=== PATIENT | male | born 1950 | race Caucasian/White ===

== ENCOUNTER 2021-07-02 10:24 | Emergency (ER) | payer OTHER, SELFPAY ==
[2021-07-02] VITALS (16 sets, daily range): BP systolic 139–180; BP diastolic 70–90; PULSE 81–101; RESP 3–25; TEMP 36.6; O2SAT 93–99; BMI 30.8
[2021-07-02 12:08] LABS: Add Manual Diff / Slide Review NO; Basophils Absolute Auto 0 /uL (0-100); Basophils Percent Auto 0.4 % (0-2); Eosinophils Absolute Auto 0 /uL (0-450); Eosinophils Percent Auto 0.1 % (2-4); Hematocrit 43.1 % (41-53); Hemoglobin 14.7 g/dL (13.5-17.5); Lymphocytes Absolute Auto 900 /uL (1100-4500); Lymphocytes Percent Auto 11.9 % (25-40); Mean Corpuscular HGB Conc 34.1 % (30-36); Mean Corpuscular Hemoglobin 29.9 PG (26-34); Mean Corpuscular Volume 87.7 fL (80-100); Monocytes Absolute Auto 700 /uL (0-900); Neutrophils Absolute Auto 5800 /uL (1500-7000); Neutrophils Percent Auto 77.6 % (50-75); Platelet Count 253 X10^3/uL (150-400); Red Blood Cell Count 4.91 X10^6/uL (4.5-5.9); Red Cell Distribution Width 13.5 % (11.6-14.8); White Blood Cell Count 7.4 X10^3/uL (4.5-11.0)
[2021-07-02 12:13] LABS: Alanine Aminotransferase 17 IU/L (<50); Albumin 4.5 g/dL (3.5-5.0); Albumin Globulin Ratio 1.4 (1.0-2.8); Alkaline Phosphatase 59 U/L (38-126); Aspartate Aminotransferase 40 IU/L (17-59); Blood Urea Nitrogen 8 mg/dL (9-20); Calcium 9.2 mg/dL (8.4-10.2); Carbon Dioxide 25 mmol/L (22-32); Chloride 99 mmol/L (98-107); Estimated Glomerular Filt Rate > 60.0 mL/min (>60); Globulin 3.3 g/dL (1.7-4.1); Glucose 121 mg/dL (80-110); Sodium 130 mmol/L (137-145); Total Protein 7.8 g/dL (6.3-8.2)
--- NOTE | 2021-07-02 12:13 | ED.DIZZY ---
HPI - Dizziness <Vladimir Reddy PA-C - Last Filed: 07/02/21 19:43> General Chief Complaint: Dizziness Stated Complaint: dizzy Time Seen by Provider: 07/02/21 12:09 Source: patient and family Mode of arrival: Ambulatory Limitations: no limitations History of Present Illness HPI Narrative: Arnulfo presents today with chief complaint of lightheadedness that started yesterday at 1600 while he was sitting at his desk at home. He reports that this has been constant since this occurred. Nothing seems to make his symptoms significantly worse. This includes rapid changes head direction, position changes. He also reports that he has had slight shortness of breath. He reports that ?I just do not feel right?. He has never felt this way before. He takes amlodipine 5 mg daily for his blood pressure but states that it has been elevated today and yesterday with values in to the 150s and 160s systolic. He took amlodipine 5 mg twice today for a total 10 mg to help with his blood pressure. He denies any significant chest pain, cough, sore throat, runny nose, headache, vision changes, exertional symptoms or any other acute concerns or complaints at this time. Related Data Allergies Allergy/AdvReac Type Severity Reaction Status Date / Time warfarin Allergy Intermediate Rash Verified 07/02/21 10:42 Review of Systems <Vladimir Reddy PA-C - Last Filed: 07/02/21 19:43> Review of Systems Narrative: As per HPI Patient History <Vladimir Reddy PA-C - Last Filed: 07/02/21 19:43> Social History Smoking Status: Never smoker Smoking Status: Never smoker alcohol intake frequency: a few times a month Substance Use Type: marijuana Exam <VINICIO Addison Last Filed: 07/02/21 19:43> Narrative Exam Narrative: Const General: cooperative, healthy appearing, comfortable and no acute distress Nutritional Appearance: average body habitus and well nourished Orientation: alert and oriented x3 HENMT Head: normal to inspection and normocephalic Ears: hearing grossly normal bilaterally, external ears normal, TM's normal bilaterally, EAC's normal, mastoids normal and no periauricular adenopathy Nose: external nose normal, nares normal and no nasal discharge Face and sinus: normal facial exam, sinuses nontender and face symmetric Mouth: oral mucosae normal, lip normal, tongue normal and moist mucous membranes Teeth and gingiva: dentition normal and gingiva normal Throat: posterior oropharynx normal, uvula midline, no postnasal drainage and no uvular edema Eyes periorbital findings normal, eyelids normal, conjunctivae normal Neck: normal visual inspection, full ROM, no lymphadenopathy, no meningeal signs and supple Resp: normal respiratory effort, able to speak in complete sentences, not labored and no respiratory distress, clear to auscultation bilaterally, no crackles, no rales and no wheezes Cardio regular rate regular rhythm Heart Sounds: no gallops, no murmurs and no rubs Extrem normal to inspection, no pedal edema and no calf tenderness Neuro Alert and Oriented x3, normal gait, moves all extremities. Normal [id number], normal rapid alternating movements of upper extremities, negative Romberg. Cranial nerves 2 through drove grossly intact. Initial Vital Signs Initial Vital Signs: Vital Signs Temperature 97.9 F 07/02/21 10:30 Pulse Rate 101 H 07/02/21 10:30 Respiratory Rate 18 07/02/21 10:30 Blood Pressure 180/85 H 07/02/21 10:30 Pulse Oximetry 95 07/02/21 10:30 <Tamiko Schwab DO - Last Filed: 07/06/21 08:51> Initial Vital Signs Initial Vital Signs: Vital Signs Temperature 97.9 F 07/02/21 10:30 Pulse Rate 101 H 07/02/21 10:30 Respiratory Rate 18 07/02/21 10:30 Blood Pressure 180/85 H 07/02/21 10:30 Pulse Oximetry 95 07/02/21 10:30 Course <Vladimir Reddy PA-C - Last Filed: 07/02/21 19:43> Orders Ordered: Discontinued Medications Sodium Chloride (Normal Saline 0.9%) 1,000 mls @ 150 mls/hr IV CONT MAG Last Infusion: 07/02/21 14:10 Dose: 0 mls/hr Documented by: Admin: 07/02/21 12:41 Dose: 150 mls/hr Documented by: ROSI Sodium Chloride (Normal Saline 0.9%) 500 mls @ 1,000 mls/hr IV BOLUS ONE Stop: 07/02/21 14:31 Last Infusion: 07/02/21 14:42 Dose: 0 mls/hr Documented by: Admin: 07/02/21 14:10 Dose: 1,000 mls/hr Documented by: ROSI Meclizine HCl (Meclizine Hcl 12.5 Mg Tablet) 25 mg PO NOW ONE Stop: 07/02/21 12:32 Last Admin: 07/02/21 12:41 Dose: 25 mg Documented by: ROSI Vital Signs Vital signs: Vital Signs - 8 hr 07/02/21 12:00 07/02/21 12:36 07/02/21 12:38 Pulse Rate 88 99 H 95 H Respiratory Rate 15 3 L Blood Pressure 144/73 H 175/80 H Pulse Oximetry 97 97 98 07/02/21 13:00 07/02/21 13:30 07/02/21 14:00 Pulse Rate 91 H 87 81 Respiratory Rate 15 14 16 Blood Pressure Pulse Oximetry 99 96 96 07/02/21 14:03 07/02/21 14:30 07/02/21 14:31 Pulse Rate 90 84 84 Respiratory Rate 18 12 19 Blood Pressure 163/90 H 152/72 H Pulse Oximetry 98 98 97 07/02/21 15:00 07/02/21 15:30 07/02/21 16:00 Pulse Rate 82 82 90 Respiratory Rate 14 17 Blood Pressure 152/72 H 180/77 H Pulse Oximetry 98 97 98 <Tamiko Schwab, DO - Last Filed: 07/06/21 08:51> Orders Ordered: Discontinued Medications Sodium Chloride (Normal Saline 0.9%) 1,000 mls @ 150 mls/hr IV CONT MAG Last Infusion: 07/02/21 14:10 Dose: 0 mls/hr Documented by: Admin: 07/02/21 12:41 Dose: 150 mls/hr Documented by: ROSI Sodium Chloride (Normal Saline 0.9%) 500 mls @ 1,000 mls/hr IV BOLUS ONE Stop: 07/02/21 14:31 Last Infusion: 07/02/21 14:42 Dose: 0 mls/hr Documented by: Admin: 07/02/21 14:10 Dose: 1,000 mls/hr Documented by: ROSI Meclizine HCl (Meclizine Hcl 12.5 Mg Tablet) 25 mg PO NOW ONE Stop: 07/02/21 12:32 Last Admin: 07/02/21 12:41 Dose: 25 mg Documented by: ROSI Vital Signs Vital signs: Vital Signs - 8 hr 07/02/21 12:00 07/02/21 12:36 07/02/21 12:38 Pulse Rate 88 99 H 95 H Respiratory Rate 15 3 L Blood Pressure 144/73 H 175/80 H Pulse Oximetry 97 97 98 07/02/21 13:00 07/02/21 13:30 07/02/21 14:00 Pulse Rate 91 H 87 81 Respiratory Rate 15 14 16 Blood Pressure Pulse Oximetry 99 96 96 07/02/21 14:03 07/02/21 14:30 07/02/21 14:31 Pulse Rate 90 84 84 Respiratory Rate 18 12 19 Blood Pressure 163/90 H 152/72 H Pulse Oximetry 98 98 97 07/02/21 15:00 07/02/21 15:30 07/02/21 16:00 Pulse Rate 82 82 90 Respiratory Rate 14 17 Blood Pressure 152/72 H 180/77 H Pulse Oximetry 98 97 98 MDM - Dizziness <Vladimir Reddy PA-C - Last Filed: 07/02/21 19:43> Lab Data Result diagrams: 07/02/21 11:24 07/02/21 11:24 Labs: Lab Results 07/02/21 07/02/21 07/02/21 Range/Units 11:24 11:24 11:24 WBC 7.4 (4.5-11.0) X10^3/uL RBC 4.91 (4.5-5.9) X10^6/uL Hgb 14.7 (13.5-17.5) g/dL Hct 43.1 (41-53) % MCV 87.7 (80-100) fL MCH 29.9 (26-34) PG MCHC 34.1 (30-36) % RDW 13.5 (11.6-14.8) % Plt Count 253 (150-400) X10^3/uL Neut % (Auto) 77.6 H (50-75) % Lymph % (Auto) 11.9 L (25-40) % Emmet % (Auto) 10.0 (3-14) % Eos % (Auto) 0.1 L (2-4) % Baso % (Auto) 0.4 (0-2) % Neut # (Auto) 5800 (1970-6921) /uL Lymph # (Auto) 900 L (9431-8087) /uL Emmet # (Auto) 700 (0-900) /uL Eos # (Auto) 0 (0-450) /uL Baso # (Auto) 0 (0-100) /uL Sodium 130 L (137-145) mmol/L Potassium 4.8 (3.4-5.1) mmol/L Chloride 99 (98-107) mmol/L Carbon Dioxide 25 (22-32) mmol/L BUN 8 L (9-20) mg/dL Creatinine 0.57 L (0.66-1.25) mg/dL Estimated GFR > 60.0 (>60) mL/min BUN/Creatinine Ratio 14.0 (6-22) Glucose 121 H (80-110) mg/dL Calcium 9.2 (8.4-10.2) mg/dL Total Bilirubin 1.0 (0.2-1.3) mg/dL AST 40 (17-59) IU/L ALT 17 (<50) IU/L Alkaline Phosphatase 59 (38-126) U/L Total Creatine Kinase 111 (55-170) U/L CK-MB (CK-2) 2.86 H (<2.37) ng/mL CK-MB (CK-2) Rel Index 2.6 (1.5-5.0) % Troponin I < 0.012 (0.01-0.034) ng/mL Total Protein 7.8 (6.3-8.2) g/dL Albumin 4.5 (3.5-5.0) g/dL Globulin 3.3 (1.7-4.1) g/dL Albumin/Globulin Ratio 1.4 (1.0-2.8) 07/02/ Range/Units 15:35 WBC (4.5-11.0) X10^3/uL RBC (4.5-5.9) X10^6/uL Hgb (13.5-17.5) g/dL Hct (41-53) % MCV (80-100) fL MCH (26-34) PG MCHC (30-36) % RDW (11.6-14.8) % Plt Count (150-400) X10^3/uL Neut % (Auto) (50-75) % Lymph % (Auto) (25-40) % Emmet % (Auto) (3-14) % Eos % (Auto) (2-4) % Baso % (Auto) (0-2) % Neut # (Auto) (3466-1479) /uL Lymph # (Auto) (4812-4723) /uL Emmet # (Auto) (0-900) /uL Eos # (Auto) (0-450) /uL Baso # (Auto) (0-100) /uL Sodium (137-145) mmol/L Potassium (3.4-5.1) mmol/L Chloride (98-107) mmol/L Carbon Dioxide (22-32) mmol/L BUN (9-20) mg/dL Creatinine (0.66-1.25) mg/dL Estimated GFR (>60) mL/min BUN/Creatinine Ratio (6-22) Glucose (80-110) mg/dL Calcium (8.4-10.2) mg/dL Total Bilirubin (0.2-1.3) mg/dL AST (17-59) IU/L ALT (<50) IU/L Alkaline Phosphatase (38-126) U/L Total Creatine Kinase 96 (55-170) U/L CK-MB (CK-2) TNP (<2.37) ng/mL CK-MB (CK-2) Rel Index TNP (1.5-5.0) % Troponin I < 0.012 (0.01-0.034) ng/mL Total Protein (6.3-8.2) g/dL Albumin (3.5-5.0) g/dL Globulin (1.7-4.1) g/dL Albumin/Globulin Ratio (1.0-2.8) Urine Dip Bedside Urine Glucose Negative Bedside Urine Bilirubin - Negative Bedside Urine Ketone - Negative Urine Specific [place] 1.015 Bedside Urine Occult Blood - Negative Bedside Urine pH 6 Bedside Urine Protein - Negative Bedside Urine Urobilinogen - Negative Bedside Urine Nitrite - Negative Bedside Urine Leukocytes - Negative Esterase MDM Narrative Medical decision making narrative: Differential diagnosis includes electrolyte abnormality, SARS-CoV-2 infection, acute coronary syndrome, pneumonia, stroke. Patient has been neurologically intact and has had improvement in symptoms with a single L of normal saline. CT scan, and other laboratory evaluation has been reassuring. COVID swab came back negative. He did not any other significant abnormal electrolytes. EKG was reassuring. He had slight bump in his CK-MB initially but troponins x2 are within normal limits. Strict ER return precautions were discussed with the patient. <Tamiko Schwab, DO - Last Filed: 07/06/21 08:51> Lab Data Labs: Lab Results 07/02/21 07/02/21 07/02/21 Range/Units 11:24 11:24 11:24 WBC 7.4 (4.5-11.0) X10^3/uL RBC 4.91 (4.5-5.9) X10^6/uL Hgb 14.7 (13.5-17.5) g/dL Hct 43.1 (41-53) % MCV 87.7 (80-100) fL MCH 29.9 (26-34) PG MCHC 34.1 (30-36) % RDW 13.5 (11.6-14.8) % Plt Count 253 (150-400) X10^3/uL Neut % (Auto) 77.6 H (50-75) % Lymph % (Auto) 11.9 L (25-40) % Emmet % (Auto) 10.0 (3-14) % Eos % (Auto) 0.1 L (2-4) % Baso % (Auto) 0.4 (0-2) % Neut # (Auto) 5800 (8518-4524) /uL Lymph # (Auto) 900 L (2520-3551) /uL Emmet # (Auto) 700 (0-900) /uL Eos # (Auto) 0 (0-450) /uL Baso # (Auto) 0 (0-100) /uL Sodium 130 L (137-145) mmol/L Potassium 4.8 (3.4-5.1) mmol/L Chloride 99 (98-107) mmol/L Carbon Dioxide 25 (22-32) mmol/L BUN 8 L (9-20) mg/dL Creatinine 0.57 L (0.66-1.25) mg/dL Estimated GFR > 60.0 (>60) mL/min BUN/Creatinine Ratio 14.0 (6-22) Glucose 121 H (80-110) mg/dL Calcium 9.2 (8.4-10.2) mg/dL Total Bilirubin 1.0 (0.2-1.3) mg/dL AST 40 (17-59) IU/L ALT 17 (<50) IU/L Alkaline Phosphatase 59 (38-126) U/L Total Creatine Kinase 111 (55-170) U/L CK-MB (CK-2) 2.86 H (<2.37) ng/mL CK-MB (CK-2) Rel Index 2.6 (1.5-5.0) % Troponin I < 0.012 (0.01-0.034) ng/mL Total Protein 7.8 (6.3-8.2) g/dL Albumin 4.5 (3.5-5.0) g/dL Globulin 3.3 (1.7-4.1) g/dL Albumin/Globulin Ratio 1.4 (1.0-2.8) 07/02/21 Range/Units 15:35 WBC (4.5-11.0) X10^3/uL RBC (4.5-5.9) X10^6/uL Hgb (13.5-17.5) g/dL Hct (41-53) % MCV (80-100) fL MCH (26-34) PG MCHC (30-36) % RDW (11.6-14.8) % Plt Count (150-400) X10^3/uL Neut % (Auto) (50-75) % Lymph % (Auto) (25-40) % Emmet % (Auto) (3-14) % Eos % (Auto) (2-4) % Baso % (Auto) (0-2) % Neut # (Auto) (6491-0607) /uL Lymph # (Auto) (8612-0618) /uL Emmet # (Auto) (0-900) /uL Eos # (Auto) (0-450) /uL Baso # (Auto) (0-100) /uL Sodium (137-145) mmol/L Potassium (3.4-5.1) mmol/L Chloride (98-107) mmol/L Carbon Dioxide (22-32) mmol/L BUN (9-20) mg/dL Creatinine (0.66-1.25) mg/dL Estimated GFR (>60) mL/min BUN/Creatinine Ratio (6-22) Glucose (80-110) mg/dL Calcium (8.4-10.2) mg/dL Total Bilirubin (0.2-1.3) mg/dL AST (17-59) IU/L ALT (<50) IU/L Alkaline Phosphatase (38-126) U/L Total Creatine Kinase 96 (55-170) U/L CK-MB (CK-2) TNP (<2.37) ng/mL CK-MB (CK-2) Rel Index TNP (1.5-5.0) % Troponin I < 0.012 (0.01-0.034) ng/mL Total Protein (6.3-8.2) g/dL Albumin (3.5-5.0) g/dL Globulin (1.7-4.1) g/dL Albumin/Globulin Ratio (1.0-2.8) Urine Dip Bedside Urine Glucose Negative Bedside Urine Bilirubin - Negative Bedside Urine Ketone - Negative Urine Specific [place] 1.015 Bedside Urine Occult Blood - Negative Bedside Urine pH 6 Bedside Urine Protein - Negative Bedside Urine Urobilinogen - Negative Bedside Urine Nitrite - Negative Bedside Urine Leukocytes - Negative Esterase Discharge Plan Departure Patient Disposition: Home Clinical Impression: Acute hyponatremia Instructions: DI for Hyponatremia Activity Restrictions/Additional Instructions: It was very nice to meet you this afternoon. Thank you for your patience. Your evaluation today has been reassuring. You were noted to have low sodium levels. This could be contributing to your symptoms. Please follow the guidelines attached to help your sodium increase. You should get this recheck it in 48-72 hours to make sure that it is improving. If you experience any significant worsening symptoms do not hesitate to return for re-evaluation. Thank you Vladimir Reddy PA-C <Tamiko Schwab, - Last Filed: 07/06/21 08:51> Cosign ED Attending Anaature Attestation: I was immediately available in the department for consultation. Documentation has been reviewed.
[2021-07-02 12:15] LABS: HEMOLYSIS 155 (0-50); Potassium 4.8 mmol/L (3.4-5.1)
--- NOTE | 2021-07-02 12:33 | DI.CT.S_ITS ---
PROCEDURE: CT HEAD/BRAIN WO CON INDICATIONS: persistent dizziness TECHNIQUE: Noncontrast 4.5 mm thick angled axial sections acquired from the foramen magnum to the vertex, with coronal and sagittal reformats. For radiation dose reduction, the following was used: automated exposure control, adjustment of mA and/or kV according to patient size. COMPARISON: None. FINDINGS: Image quality: Excellent. CSF spaces: Basal cisterns are patent. No extra-axial fluid collections. The ventricles are symmetric in size and shape. Brain: No intracranial bleeds or masses. There is cerebral volume loss for age, with resultant ventricular and sulcal prominence. There are periventricular and deep white matter chronic small vessel ischemic changes. There is intracranial internal carotid artery atherosclerosis. Skull and face: Calvarium and visualized facial bones appear intact, without suspicious lesions. Sinuses: Visualized sinuses and mastoids are clear. IMPRESSION: Unremarkable noncontrast head CT for age, without an imaging explanation found for the patient's presenting history. If it would be helpful for clinical management decision making, please consider a dedicated brain MRI (IAC protocol, without and with contrast) for further evaluation (assuming that there is no contraindication). Dictated by: Emerson Rosado M.D. on 07/02/2021 at 12:02 Approved by: Emerson Rosado M.D. on 07/02/2021 at 12:03
[2021-07-02] MEDS: MECLIZINE HCL 12.5 MG TABLET 25 MG PO (12:41)
[2021-07-02] MEDS: SODIUM CHLORIDE 0.9% 1,000 ML 150 ML IV (12:41)
[2021-07-02 12:49] LABS: Creatine Kinase 111 U/L (55-170)
[2021-07-02 13:01] LABS: Troponin I < 0.012 ng/mL (0.01-0.034)
[2021-07-02 13:04] LABS: CKMB % Relative Index 2.6 % (1.5-5.0); Creatine Kinase MB 2.86 ng/mL (<2.37)
[2021-07-02] MEDS: SODIUM CHLORIDE 0.9% 500 ML 1000 ML IV (14:10)
[2021-07-02 15:58] LABS: Creatine Kinase 96 U/L (55-170)
[2021-07-02 16:11] LABS: Troponin I < 0.012 ng/mL (0.01-0.034)
== END 2021-07-02 16:56 | disposition home or self-care (01) ==
PROVIDERS: Emergency Medicine; Emergency Provider Physician Assistant
DX: E87.1 Hypo-osmolality and hyponatremia (principal); R42 Dizziness and giddiness; I10 Essential (primary) hypertension
CPT/HCPCS: 36415; 70450; 80053; 81003; 82550; 82553; 84484; 85025; 93005; 93010; 96360; 96361; 99284

== ENCOUNTER 2022-05-25 10:22 | Inpatient (IN) | payer OTHER, SELFPAY ==
[2022-05-25] VITALS (20 sets, daily range): BP systolic 130–162; BP diastolic 59–77; PULSE 89–109; RESP 15–26; TEMP 36.3–38.6; O2SAT 94–100; BMI 30.8
--- NOTE | 2022-05-25 10:27 | DI.RAD.S_ITS ---
PROCEDURE: XR CHEST 1V INDICATIONS: chest pain TECHNIQUE: One view of the chest was acquired. COMPARISON: None. FINDINGS: Surgical changes and devices: None. Lungs and pleura: Mild elevation of left hemidiaphragm is seen with left basilar atelectasis. Mild bilateral pulmonary vascular congestion is also noted. No pleural effusions or pneumothorax. Mediastinum: Mediastinal contours appear normal. Heart size is normal. Bones and chest wall: No suspicious bony lesions. Overlying soft tissues appear unremarkable. IMPRESSION: Elevation of left hemidiaphragm with left basilar atelectasis. Mild pulmonary vascular congestion. No definite focal infiltrate. No pleural effusion or pneumothorax. Dictated by: Jarod Vega M.D. on 05/25/2022 at 11:11 Approved by: Jarod Vega M.D. on 05/25/2022 at 11:12
[2022-05-25 10:47] LABS: Add Manual Diff / Slide Review NO; Basophils Absolute Auto 0 /uL (0-100); Basophils Percent Auto 0.3 % (0-2); Eosinophils Absolute Auto 0 /uL (0-450); Lymphocytes Absolute Auto 1500 /uL (1100-4500); Lymphocytes Percent Auto 11.1 % (25-40); Mean Corpuscular HGB Conc 34.3 % (30-36); Mean Corpuscular Volume 87.6 fL (80-100); Monocytes Absolute Auto 600 /uL (0-900); Neutrophils Absolute Auto 11600 /uL (1500-7000); Neutrophils Percent Auto 84.6 % (50-75); Platelet Count 260 X10^3/uL (150-400); Red Blood Cell Count 2.11 X10^6/uL (4.5-5.9); Red Cell Distribution Width 14.1 % (11.6-14.8); White Blood Cell Count 13.7 X10^3/uL (4.5-11.0)
[2022-05-25 10:55] LABS: INR 1.1 (0.9-1.3)
--- NOTE | 2022-05-25 10:56 | ED_ITS ---
HPI - Head Injury General Chief complaint: Dizziness Stated complaint: Light headed, SOB x 3 days Time Seen by Provider: 05/25/22 10:40 Source: patient Mode of arrival: Ambulatory Related Data Allergies Allergy/AdvReac Type Severity Reaction Status Date / Time warfarin Allergy Intermediate Rash Verified 05/25/22 10:24 Patient History Social History Smoking Status: Never smoker Smoking Status: Never smoker alcohol intake frequency: holidays/special occasions only Substance Use Type: does not use Exam Initial Vital Signs Initial Vital Signs: Vital Signs Temperature 97.4 F L 05/25/22 10:24 Pulse Rate 109 H 05/25/22 10:24 Respiratory Rate 15 05/25/22 10:24 Blood Pressure 162/72 H 05/25/22 10:24 Pulse Oximetry 100 05/25/22 10:24 Oxygen Delivery Method 05/25/22 10:24 Course Orders Ordered: ED Orders 05/25/22 10:27 XR chest 1V Stat EKG-12 Lead Stat 05/25/22 10:35 BNP [NT-proBNP (BNP-Adult 18+)] Stat Complete Blood Count AUTO DIFF Stat Comprehensive Metabolic Panel Stat D Dimer Stat Lipase Stat Magnesium Stat Partial Thromboplastin Time Stat Prothrombin Time INR Stat Troponin & CK Cardiac Panel Stat 05/25/22 10:49 Type and Screen Stat Vital Signs Vital signs: Vital Signs - 8 hr 05/25/22 10:24 Temperature 97.4 F L Pulse Rate 109 H Respiratory Rate 15 Blood Pressure 162/72 H Pulse Oximetry 100 Oxygen Delivery Method Room Air MDM - Head Injury Lab Data Result diagrams: 05/25/22 10:35 05/25/22 10:35 Labs: Lab Results 05/25/22 Range/Units 10:35 WBC 13.7 H (4.5-11.0) X10^3/uL RBC 2.11 L (4.5-5.9) X10^6/uL Hgb 6.3 L* (13.5-17.5) g/dL Hct 18.5 L* (41-53) % MCV 87.6 (80-100) fL MCH 30.0 (26-34) PG MCHC 34.3 (30-36) % RDW 14.1 (11.6-14.8) % Plt Count 260 (150-400) X10^3/uL Neut % (Auto) 84.6 H (50-75) % Lymph % (Auto) 11.1 L (25-40) % [place] % (Auto) 4.0 (3-14) % Eos % (Auto) 0.0 L (2-4) % Baso % (Auto) 0.3 (0-2) % Neut # (Auto) 80898 H (9301-0377) /uL Lymph # (Auto) 1500 (4624-2419) /uL [place] # (Auto) 600 (0-900) /uL Eos # (Auto) 0 (0-450) /uL Baso # (Auto) 0 (0-100) /uL Discharge Plan Departure Referrals: Jovany Richardson MD [Primary Care Provider] -
[2022-05-25 10:57] LABS: Hematocrit 18.5 % (41-53); Hemoglobin 6.3 g/dL (13.5-17.5)
[2022-05-25 10:58] LABS: Alanine Aminotransferase 14 IU/L (<50); Albumin 3.5 g/dL (3.5-5.0); Albumin Globulin Ratio 1.5 (1.0-2.8); Alkaline Phosphatase 48 U/L (38-126); Aspartate Aminotransferase 22 IU/L (17-59); BUN Creatinine Ratio 33.9 (6-22); Bilirubin Total 0.2 mg/dL (0.2-1.3); Blood Urea Nitrogen 19 mg/dL (9-20); Carbon Dioxide 26 mmol/L (22-32); Chloride 102 mmol/L (98-107); Creatine Kinase 49 U/L (55-170); Estimated Glomerular Filt Rate > 60 mL/min (>60); Globulin 2.4 g/dL (1.7-4.1); Glucose 132 mg/dL (80-110); HEMOLYSIS < 15 (0-50); Lipase 124 U/L (23-300); PTT Partial Thromboplastin Tim 24 SECONDS (26.4-36.2); Potassium 3.5 mmol/L (3.4-5.1); Sodium 131 mmol/L (137-145); Total Protein 5.9 g/dL (6.3-8.2)
[2022-05-25 10:59] LABS: D Dimer < 200 ng/mL (<230)
--- NOTE | 2022-05-25 11:06 | ED.DIZZY ---
HPI - Dizziness General Chief Complaint: Dizziness Stated Complaint: Light headed, SOB x 3 days Time Seen by Provider: 05/25/22 10:40 Source: patient Mode of arrival: Ambulatory History of Present Illness HPI Narrative: 72-year-old male nonsmoker with history of hypertension presents with family in the chief complaint of a few days of shortness of breath and fatigue. He denies any fever or chills and has had no nausea or vomiting. He denies chest pain. He states that minimal exertion makes him feel quite short of breath and it seems to improve with rest. He denies any dark or tarry stools. He does occasionally take aspirin but denies any history of blood thinners. He denies any new medications or dietary change. Related Data Home Medications Medication Instructions Recorded Confirmed amlodipine 5 mg tablet 5 mg PO BID 05/25/22 05/25/22 Allergies Allergy/AdvReac Type Severity Reaction Status Date / Time warfarin Allergy Intermediate Rash Verified 05/25/22 10:24 Review of Systems Review of Systems Narrative: GENERAL: See HPI HEENT: Denies sinus pain, ear pain, sore throat, difficulty swallowing, dizziness. RESPIRATORY: See HPI CARDIOVASCULAR: Denies chest pain, palpitations, orthopnea, edema, GASTROINTESTINAL: Denies nausea, vomiting, abdominal pain, diarrhea, constipation, melena. : Denies dysuria, frequency, incontinence, hematuria, urinary retention. MUSCULOSKELETAL: denies weakness, joint pain, or bony pain SKIN: Denies rash, skin lesions, or other NEUROLOGIC: Denies weakness, headache, numbness, change in speech, confusion, seizures, incoordination. PSYCHIATRIC: No concerning psychosocial issues. 12 point review of systems is negative except for those stated above Patient History Medical History History of atrial fibrillation Hypertension Surgical History H/O cardiac radiofrequency ablation Family History Father Atrial fibrillation Social History household members: spouse Smoking Status: Never smoker Smoking Status: Never smoker alcohol intake frequency: holidays/special occasions only Substance Use Type: does not use Exam Narrative Exam Narrative: GENERAL: [72 year old patient appears stated age. Well-developed patient, in mild distress. Minimal exertion results in significant shortness of breath HEAD: Atraumatic. Normocephalic. EYES: Pale conjunctiva Pupils equal round and reactive. Extraocular motions intact. No scleral icterus. No injection or drainage. ENT: Nose without bleeding, purulent drainage. Throat without erythema, tonsillar hypertrophy or exudate. Airway patent. NECK: Trachea midline. Non tender CARDIOVASCULAR: Regular rate and rhythm without murmurs, gallops, or rubs. RESPIRATORY: Clear to auscultation. Breath sounds equal bilaterally. No wheezes, rales, or rhonchi. GASTROINTESTINAL: Abdomen soft, non-tender, nondistended. RECTAL: slightly dark stool, quickly becomes positive on hemoccult EXTREMITIES: No edema or joint tenderness. BACK: Nontender without deformity or crepitance. No flank tenderness. NEURO: AOx3. SKIN: No rash or erythema of visible areas Initial Vital Signs Initial Vital Signs: Vital Signs Temperature 97.4 F L 05/25/22 10:24 Pulse Rate 109 H 05/25/22 10:24 Respiratory Rate 15 05/25/22 10:24 Blood Pressure 162/72 H 05/25/22 10:24 Pulse Oximetry 100 05/25/22 10:24 Oxygen Delivery Method 05/25/22 10:24 Course Orders Ordered: ED Orders 05/25/22 10:27 XR chest 1V Stat EKG-12 Lead Stat 05/25/22 10:35 BNP [NT-proBNP (BNP-Adult 18+)] Stat Complete Blood Count AUTO DIFF Stat Comprehensive Metabolic Panel Stat D Dimer Stat Lipase Stat Magnesium Stat Packed Cells Stat Partial Thromboplastin Time Stat Prothrombin Time INR Stat Troponin & CK Cardiac Panel Stat Type and Screen Stat 05/25/22 12:00 COVID19 -Nasal RAPID/Pre-Proc Stat Acetaminophen (Acetaminophen 325 Mg Tablet) 650 mg PO Q6HR MAG Last Admin: 05/25/22 17:26 Dose: Not Given Documented By: VIKKI Stored In Pharmacy 0 each PO . COUNT INCLUDES THE [facility] Ondansetron HCl (Ondansetron 4 Mg/2 Ml Inj) 4 mg IV Q8HR PRN PRN Reason: Nausea And Vomiting Pantoprazole Sodium (Pantoprazole 40 Mg Vial) 40 mg IV BID COUNT INCLUDES THE [facility] Discontinued Medications Pantoprazole Sodium (Pantoprazole 40 Mg Vial) 40 mg IV NOW ONE Stop: 05/25/22 12:16 Last Admin: 05/25/22 13:05 Dose: 40 mg Documented By: AT Polyethylene Glycol/Electrolytes ([id number]/Sod Sulf,Bicarb,Cl/Kcl 4,000 Ml Solution) 4,000 ml PO NOW ONE Stop: 05/25/22 15:01 Last Admin: 05/25/22 15:59 Dose: 4,000 ml Documented By: VIKKI Consultations Consultation #1: discussed with credit correspondence clerk Gen Surg (Arya) happy to play a role as organizational consultant Vital Signs Vital signs: Vital Signs - 8 hr 05/25/22 10:24 05/25/22 12:05 05/25/22 11:33 Temperature 97.4 F L 98.6 F Pulse Rate 109 H 98 H Respiratory Rate 15 26 H Blood Pressure 162/72 H 139/61 156/77 H Pulse Oximetry 100 Oxygen Delivery Method Room Air 05/25/22 11:33 05/25/22 11:45 05/25/22 11:45 Temperature Pulse Rate 100 H 99 H Respiratory Rate 19 19 Blood Pressure 152/72 H Pulse Oximetry 99 99 Oxygen Delivery Method 05/25/22 12:00 05/25/22 12:01 05/25/22 12:01 Temperature Pulse Rate 98 H 97 H Respiratory Rate 16 20 Blood Pressure 139/62 Pulse Oximetry 99 98 Oxygen Delivery Method MDM - Dizziness Lab Data Result diagrams: 05/25/22 17:39 05/25/22 10:35 Labs: Lab Results 05/25/22 05/25/22 05/25/22 Range/Units 10:35 10:35 10:35 WBC 13.7 H (4.5-11.0) X10^3/uL RBC 2.11 L (4.5-5.9) X10^6/uL Hgb 6.3 L* (13.5-17.5) g/dL Hct 18.5 L* (41-53) % MCV 87.6 (80-100) fL MCH 30.0 (26-34) PG MCHC 34.3 (30-36) % RDW 14.1 (11.6-14.8) % Plt Count 260 (150-400) X10^3/uL Neut % (Auto) 84.6 H (50-75) % Lymph % (Auto) 11.1 L (25-40) % [place] % (Auto) 4.0 (3-14) % Eos % (Auto) 0.0 L (2-4) % Baso % (Auto) 0.3 (0-2) % Neut # (Auto) 85878 H (4014-8282) /uL Lymph # (Auto) 1500 (3707-7211) /uL [place] # (Auto) 600 (0-900) /uL Eos # (Auto) 0 (0-450) /uL Baso # (Auto) 0 (0-100) /uL PT 12.0 (10.1-12.7) SECONDS INR 1.1 (0.9-1.3) APTT 24 L (26.4-36.2) SECONDS D-Dimer (<230) ng/mL Sodium 131 L (137-145) mmol/L Potassium 3.5 (3.4-5.1) mmol/L Chloride 102 (98-107) mmol/L Carbon Dioxide 26 (22-32) mmol/L BUN 19 (9-20) mg/dL Creatinine 0.56 L (0.66-1.25) mg/dL Estimated GFR > 60 (>60) mL/min BUN/Creatinine Ratio 33.9 H (6-22) Glucose 132 H (80-110) mg/dL Calcium 8.0 L (8.4-10.2) mg/dL Magnesium 2.0 (1.6-2.3) mg/dL Total Bilirubin 0.2 (0.2-1.3) mg/dL AST 22 (17-59) IU/L ALT 14 (<50) IU/L Alkaline Phosphatase 48 (38-126) U/L Total Creatine Kinase 49 L (55-170) U/L CK-MB (CK-2) TNP CK-MB (CK-2) Rel Index TNP Troponin I < 0.012 (0.01-0.034) ng/mL NT-Pro-B Natriuret Pep (<125) pg/mL Total Protein 5.9 L (6.3-8.2) g/dL Albumin 3.5 (3.5-5.0) g/dL Globulin 2.4 (1.7-4.1) g/dL Albumin/Globulin Ratio 1.5 (1.0-2.8) Lipase 124 (23-300) U/L SARS-CoV-2 (PCR) (Negative) Blood Type Antibody Screen Crossmatch 05/25/22 05/25/22 05/25/22 Range/Units 10:35 10:35 10:35 WBC (4.5-11.0) X10^3/uL RBC (4.5-5.9) X10^6/uL Hgb (13.5-17.5) g/dL Hct (41-53) % MCV (80-100) fL MCH (26-34) PG MCHC (30-36) % RDW (11.6-14.8) % Plt Count (150-400) X10^3/uL Neut % (Auto) (50-75) % Lymph % (Auto) (25-40) % [place] % (Auto) (3-14) % Eos % (Auto) (2-4) % Baso % (Auto) (0-2) % Neut # (Auto) (3169-4157) /uL Lymph # (Auto) (8536-3473) /uL [place] # (Auto) (0-900) /uL Eos # (Auto) (0-450) /uL Baso # (Auto) (0-100) /uL PT (10.1-12.7) SECONDS INR (0.9-1.3) APTT (26.4-36.2) SECONDS D-Dimer < 200 (<230) ng/mL Sodium (137-145) mmol/L Potassium (3.4-5.1) mmol/L Chloride (98-107) mmol/L Carbon Dioxide (22-32) mmol/L BUN (9-20) mg/dL Creatinine (0.66-1.25) mg/dL Estimated GFR (>60) mL/min BUN/Creatinine Ratio (6-22) Glucose (80-110) mg/dL Calcium (8.4-10.2) mg/dL Magnesium (1.6-2.3) mg/dL Total Bilirubin (0.2-1.3) mg/dL AST (17-59) IU/L ALT (<50) IU/L Alkaline Phosphatase (38-126) U/L Total Creatine Kinase (55-170) U/L CK-MB (CK-2) CK-MB (CK-2) Rel Index Troponin I (0.01-0.034) ng/mL NT-Pro-B Natriuret Pep 264 H (<125) pg/mL Total Protein (6.3-8.2) g/dL Albumin (3.5-5.0) g/dL Globulin (1.7-4.1) g/dL Albumin/Globulin Ratio (1.0-2.8) Lipase (23-300) U/L SARS-CoV-2 (PCR) (Negative) Blood Type A Positive Antibody Screen Negative Crossmatch See Detail 05/25/22 Range/Units 12:00 WBC (4.5-11.0) X10^3/uL RBC (4.5-5.9) X10^6/uL Hgb (13.5-17.5) g/dL Hct (41-53) % MCV (80-100) fL MCH (26-34) PG MCHC (30-36) % RDW (11.6-14.8) % Plt Count (150-400) X10^3/uL Neut % (Auto) (50-75) % Lymph % (Auto) (25-40) % [place] % (Auto) (3-14) % Eos % (Auto) (2-4) % Baso % (Auto) (0-2) % Neut # (Auto) (8461-3750) /uL Lymph # (Auto) (2955-8979) /uL [place] # (Auto) (0-900) /uL Eos # (Auto) (0-450) /uL Baso # (Auto) (0-100) /uL PT (10.1-12.7) SECONDS INR (0.9-1.3) APTT (26.4-36.2) SECONDS D-Dimer (<230) ng/mL Sodium (137-145) mmol/L Potassium (3.4-5.1) mmol/L Chloride (98-107) mmol/L Carbon Dioxide (22-32) mmol/L BUN (9-20) mg/dL Creatinine (0.66-1.25) mg/dL Estimated GFR (>60) mL/min BUN/Creatinine Ratio (6-22) Glucose (80-110) mg/dL Calcium (8.4-10.2) mg/dL Magnesium (1.6-2.3) mg/dL Total Bilirubin (0.2-1.3) mg/dL AST (17-59) IU/L ALT (<50) IU/L Alkaline Phosphatase (38-126) U/L Total Creatine Kinase (55-170) U/L CK-MB (CK-2) CK-MB (CK-2) Rel Index Troponin I (0.01-0.034) ng/mL NT-Pro-B Natriuret Pep (<125) pg/mL Total Protein (6.3-8.2) g/dL Albumin (3.5-5.0) g/dL Globulin (1.7-4.1) g/dL Albumin/Globulin Ratio (1.0-2.8) Lipase (23-300) U/L SARS-CoV-2 (PCR) Negative (Negative) Blood Type Antibody Screen Crossmatch Imaging Data Chest x-ray: Radiologist's Impression: [address] [address] XRay Report Signed Patient: Arnulfo Bird MR#: [id number] : 1950 Acct:[id number] Age/Sex: 72 / M Date of Service: 05/25/22 Loc: ED Accession Number: [id number] ?? Procedure: XR chest 1V Ordering Provider: Hipolito Matthews D.O. PROCEDURE:? XR CHEST 1V ? INDICATIONS:? chest pain ? TECHNIQUE:? One view of the chest was acquired.? ? COMPARISON:? None. ? FINDINGS:? ? Surgical changes and devices:? None.? ? Lungs and pleura:? Mild elevation of left hemidiaphragm is seen with left basilar atelectasis.? Mild bilateral pulmonary vascular congestion is also noted.? No pleural effusions or pneumothorax.? ? Mediastinum:? Mediastinal contours appear normal.? Heart size is normal.? ? Bones and chest wall:? No suspicious bony lesions.? Overlying soft tissues appear unremarkable.? ? IMPRESSION:? Elevation of left hemidiaphragm with left basilar atelectasis.? Mild pulmonary vascular congestion.? No definite focal infiltrate.? No pleural effusion or pneumothorax. ? ? Dictated by: Jarod Vega M.D. on 05/25/2022 at 11:11 ? ? Approved by: Jarod Vega M.D. on 05/25/2022 at 11:1 Discharge Plan Departure Patient Disposition: Admitted As Inpatient Clinical Impression: Acute GI bleeding, Symptomatic anemia Admit Date/Time: 05/25/22 12:11 Admit Provider: Makeda Prajapati
[2022-05-25 11:07] LABS: NT-proBNP (BNP-Adult 18+) 264 pg/mL (<125)
[2022-05-25 11:10] LABS: Troponin I < 0.012 ng/mL (0.01-0.034)
[2022-05-25 12:15] LABS: COVID19 -Nasal RAPID Negative (Negative)
[2022-05-25] MEDS: PANTOPRAZOLE 40 MG VIAL IV ×2 (13:05→20:53)
--- NOTE | 2022-05-25 13:33 | PC.NURSE ---
Day shift: Pt in room from ED at approx 1330. He is A&Ox4. Denies any chest pain, nausea or general pain. Denies any SOB. Pt does appear pale though. Steady on feet. Pt in BR at this time. Oriented to room and call light. Pt's Son in room also.
--- NOTE | 2022-05-25 15:13 | P.HP_ITS ---
History of Present Illness History of Present Illness Date Patient Seen: 05/25/22 Time Patient Seen: 15:13 Chief complaint: Light headed, SOB x 3 days Narrative: The patient is a 72-year-old male with a history of hypertension, history of atrial fibrillation status post an ablation x2, who presents with lightheadedness and a syncopal episode. Patient got up to go to the restroom 2 nights ago. He loss consciousness. He awoke on the floor having felt lighthead ed. Patient reports he had a similar episode in the past secondary to hyponatremia. He thought this was recurrent hyponatremia. However the following day he continued to be lightheaded and dizzy and was brought into the hospital for further evaluation. In the emergency room he was found to have a hemoglobin of 6 and hematocrit of 18, guaiac of his stool was positive for Hemoccult for blood. Patient denies any abdominal pain, he has had no hematemesis, he has had no melena. He denies any history of ulcer. He does not drink alcohol. He has had no prior history of GI bleeding. He is allergic to Coumadin, he takes aspirin infrequently. He is on no other blood thinners. Patient was given 1 unit of blood in the emergency room. He is admitted to the hospital for further evaluation of acute blood loss anemia likely secondary to an upper GI bleed. The patient reports shortness of breath over the past 2 days. He denies any chest pain, palpitations, headache, blurred vision double v ision, cough, fever or chills. He has no dysuria hematuria or pyuria. Patient History Medical History History of atrial fibrillation Hypertension Surgical History H/O cardiac radiofrequency ablation Family & Social History Family History Father Atrial fibrillation Safety & Behavioral: Feels Safe in Current Yes Environment Been Physically Hurt or No Threatened By a Person Tobacco & Substance use: Smoking Status Never smoker alcohol intake frequency holiday/special occasion Substance Use Type does not use Meds Home Medications and Allergies Home Medications Medication Instructions Recorded Confirmed Type amlodipine 5 mg tablet 5 mg PO BID 05/25/22 05/25/22 History Allergies Allergy/AdvReac Type Severity Reaction Status Date / Time warfarin Allergy Intermediate Rash Verified 05/25/22 10:24 Review of Systems Review of Systems Narrative: Ten point review of systems is negative Exam Vital Signs (past 8 hours): - 05/25/22 10:24 05/25/22 12:05 05/25/22 12:21 Temperature 97.4 F L 98.6 F 98.6 F Pulse Rate 109 H 98 H 99 H Respiratory Rate 15 26 H 18 Blood Pressure 162/72 H 139/61 141/61 H Pulse Oximetry 100 Oxygen Delivery Method Room Air 05/25/22 11:33 05/25/22 11:33 05/25/22 11:45 Temperature Pulse Rate 100 H Respiratory Rate 19 Blood Pressure 156/77 H 152/72 H Pulse Oximetry 99 Oxygen Delivery Method 05/25/22 11:45 05/25/22 12:00 05/25/22 12:01 Temperature Pulse Rate 99 H 98 H Respiratory Rate 19 16 Blood Pressure 139/62 Pulse Oximetry 99 99 Oxygen Delivery Method 05/25/22 12:01 05/25/22 12:21 05/25/22 12:21 Temperature Pulse Rate 97 H 94 H Respiratory Rate 20 22 Blood Pressure 141/61 H Pulse Oximetry 98 98 Oxygen Delivery Method 05/25/22 12:30 05/25/22 12:30 05/25/22 12:45 Temperature Pulse Rate 92 H 95 H Respiratory Rate 21 17 Blood Pressure 146/63 H Pulse Oximetry 99 98 Oxygen Delivery Method 05/25/22 12:45 05/25/22 13:00 05/25/22 13:00 Temperature Pulse Rate 94 H Respiratory Rate 17 Blood Pressure 130/59 L 143/66 H Pulse Oximetry 99 Oxygen Delivery Method 05/25/22 14:35 05/25/22 14:37 Temperature 98.6 F 98.6 F Pulse Rate 97 H 97 H Respiratory Rate 18 18 Blood Pressure 143/62 H 143/62 H Pulse Oximetry Oxygen Delivery Method Oxygen Delivery Method Room Air Narrative Exam Narrative: Pleasant male resting comfortably in no obvious distress HENVA Other: HEENT: Normocephalic atraumatic, extraocular muscles are intact, oropharynx is clear, neck is supple without adenopathy Resp Other: Lungs: Clear to auscultation Cardio Other: Cardiac exam: Regular rate and rhythm normal S1-S2 with 2/6 systolic ejection murmur GI Other: Abdomen: Soft nontender nondistended, no hepatosplenomegaly, no rebound tenderness, no board-like rigidity, no palpable mass Skin Other: No lesion Neuro Other: Nonfocal Extrem Other: 1+ edema bilateral Psych Other: Awake and alert, answers questions appropriately, normal mental status, mood, affect, attitude, thought process and thought content Objective Labs Result Diagrams: 05/25/22 10:35 05/25/22 10:35 Labs: Laboratory Results - last 24 hr 05/25/22 05/25/22 05/25/22 10:35 10:35 10:35 WBC 13.7 H RBC 2.11 L Hgb 6.3 L* Hct 18.5 L* MCV 87.6 MCH 30.0 MCHC 34.3 RDW 14.1 Plt Count 260 Neut % (Auto) 84.6 H Lymph % (Auto) 11.1 L [place] % (Auto) 4.0 Eos % (Auto) 0.0 L Baso % (Auto) 0.3 Neut # (Auto) 03146 H Lymph # (Auto) 1500 [place] # (Auto) 600 Eos # (Auto) 0 Baso # (Auto) 0 PT 12.0 INR 1.1 APTT 24 L D-Dimer Sodium 131 L Potassium 3.5 Chloride 102 Carbon Dioxide 26 BUN 19 Creatinine 0.56 L Estimated GFR > 60 BUN/Creatinine Ratio 33.9 H Glucose 132 H Calcium 8.0 L Magnesium 2.0 Total Bilirubin 0.2 AST 22 ALT 14 Alkaline Phosphatase 48 Total Creatine Kinase 49 L CK-MB (CK-2) TNP CK-MB (CK-2) Rel Index TNP Troponin I < 0.012 NT-Pro-B Natriuret Pep Total Protein 5.9 L Albumin 3.5 Globulin 2.4 Albumin/Globulin Ratio 1.5 Lipase 124 SARS-CoV-2 (PCR) Blood Type Antibody Screen Crossmatch 05/25/22 05/25/22 05/25/22 10:35 10:35 10:35 WBC RBC Hgb Hct MCV MCH MCHC RDW Plt Count Neut % (Auto) Lymph % (Auto) [place] % (Auto) Eos % (Auto) Baso % (Auto) Neut # (Auto) Lymph # (Auto) [place] # (Auto) Eos # (Auto) Baso # (Auto) PT INR APTT D-Dimer < 200 Sodium Potassium Chloride Carbon Dioxide BUN Creatinine Estimated GFR BUN/Creatinine Ratio Glucose Calcium Magnesium Total Bilirubin AST ALT Alkaline Phosphatase Total Creatine Kinase CK-MB (CK-2) CK-MB (CK-2) Rel Index Troponin I NT-Pro-B Natriuret Pep 264 H Total Protein Albumin Globulin Albumin/Globulin Ratio Lipase SARS-CoV-2 (PCR) Blood Type A Positive Antibody Screen Negative Crossmatch See Detail 05/25/22 12:00 WBC RBC Hgb Hct MCV MCH MCHC RDW Plt Count Neut % (Auto) Lymph % (Auto) [place] % (Auto) Eos % (Auto) Baso % (Auto) Neut # (Auto) Lymph # (Auto) [place] # (Auto) Eos # (Auto) Baso # (Auto) PT INR APTT D-Dimer Sodium Potassium Chloride Carbon Dioxide BUN Creatinine Estimated GFR BUN/Creatinine Ratio Glucose Calcium Magnesium Total Bilirubin AST ALT Alkaline Phosphatase Total Creatine Kinase CK-MB (CK-2) CK-MB (CK-2) Rel Index Troponin I NT-Pro-B Natriuret Pep Total Protein Albumin Globulin Albumin/Globulin Ratio Lipase SARS-CoV-2 (PCR) Negative Blood Type Antibody Screen Crossmatch Assessment & Plan Assessment & Plan narrative: 72-year-old male with a history of hypertension, history of paroxysmal atrial fibrillation status post ablation admitted to the hospital with an acute blood loss anemia likely secondary to upper GI bleed * Patient had a near syncopal episode * Found to be anemic with a hemoglobin of 6 and hematocrit of 18 * Patient was Hemoccult positive in the emergency department * Will continue Protonix 40 IV b.i.d. * Will transfuse to hemoglobin of 8 * Patient will be made NPO * Surgery consultation obtained, patient to have upper and lower endoscopy tomorrow * Bowel prep started this evening Hypertension * Patient previously on amlodipine 5 mg twice daily * Will hold for now, blood pressure markedly elevated can resume History of atrial fibrillation * Status post ablation * On no anticoagulant at this point * Will continue to monitor Patient reports he is a full code will note that his record accordingly. His is his surrogate decision maker. I have utilized all available methods to review update confirm the patient's current medications Patient will be admitted under observation, anticipate discharge home tomorrow after upper and lower endoscopy Time Spent With Patient Critical Care time: I spent a total of [] minutes of critical care time on this patient's care today; this time is exclusive of procedural time.
[2022-05-25] MEDS: PEG3350/SOD SULF,BICARB,CL/KCL 4,000 ML SOLUTION 4000 ML PO (15:59)
[2022-05-25 17:47] LABS: Hematocrit 21.6 % (41-53); Hemoglobin 7.4 g/dL (13.5-17.5)
[2022-05-25] MEDS: ACETAMINOPHEN 325 MG TABLET 650 MG PO (20:54)
[2022-05-26] VITALS (23 sets, daily range): BP systolic 98–148; BP diastolic 52–77; PULSE 76–98; RESP 15–20; TEMP 36.7–37.6; O2SAT 95–99
[2022-05-26] MEDS: SODIUM CHLORIDE 0.9% 500 ML 1000 ML IV (01:46)
[2022-05-26 01:58] LABS: Alanine Aminotransferase 13 IU/L (<50); Albumin 2.7 g/dL (3.5-5.0); Albumin Globulin Ratio 1.3 (1.0-2.8); Alkaline Phosphatase 34 U/L (38-126); Aspartate Aminotransferase 24 IU/L (17-59); BUN Creatinine Ratio 32.1 (6-22); Bilirubin Total 0.3 mg/dL (0.2-1.3); Blood Urea Nitrogen 17 mg/dL (9-20); Calcium 7.5 mg/dL (8.4-10.2); Carbon Dioxide 26 mmol/L (22-32); Chloride 103 mmol/L (98-107); Estimated Glomerular Filt Rate > 60 mL/min (>60); Globulin 2.1 g/dL (1.7-4.1); Glucose 112 mg/dL (80-110); HEMOLYSIS < 15 (0-50); Potassium 3.4 mmol/L (3.4-5.1); Sodium 133 mmol/L (137-145); Total Protein 4.8 g/dL (6.3-8.2)
[2022-05-26 02:05] LABS: Hematocrit 18.1 % (41-53); Hemoglobin 6.1 g/dL (13.5-17.5)
[2022-05-26 06:23] LABS: Basophils Absolute Auto 0 /uL (0-100); Basophils Percent Auto 0.5 % (0-2); Eosinophils Absolute Auto 0 /uL (0-450); Eosinophils Percent Auto 0.2 % (2-4); Lymphocytes Absolute Auto 2000 /uL (1100-4500); Lymphocytes Percent Auto 21.6 % (25-40); Mean Corpuscular HGB Conc 33.6 % (30-36); Mean Corpuscular Hemoglobin 29.5 PG (26-34); Mean Corpuscular Volume 87.8 fL (80-100); Monocytes Absolute Auto 800 /uL (0-900); Monocytes Percent Auto 8.8 % (3-14); Neutrophils Absolute Auto 6500 /uL (1500-7000); Neutrophils Percent Auto 68.9 % (50-75); Platelet Count 191 X10^3/uL (150-400); Red Blood Cell Count 2.28 X10^6/uL (4.5-5.9); Red Cell Distribution Width 15.5 % (11.6-14.8); White Blood Cell Count 9.5 X10^3/uL (4.5-11.0)
[2022-05-26 06:27] LABS: Add Manual Diff / Slide Review SLIDE REVIEW; Hemoglobin 6.7 g/dL (13.5-17.5)
--- NOTE | 2022-05-26 06:52 | PC.NURSE ---
At approx 0405 during blood transfusion, this RN entered pt's room to check up on him. Pt reported feeling hot, flushed, clammy, nauseous. 155 mL PRBCs infused at that time. Infusion stopped, IV flushed. Vitals @ 04:08 BP 148/61, HR 98, Temp oral 99.0, RR 18, SPO2 98 on RA. Completed clerical check on blood bag, confirmed match. Contacted provider. Followed transfusion reaction protocol, documented in [facility]. Vitals @ 04:33 BP 138/65, HR 85, Temp oral 99.0, RR 18, SPO2 98% on RA. Pt reports feeling mildly better, but still symptomatic. Vitals @ 05:03 BP 124/69, HR 88, Temp oral 98.7, RR 16, SPO2 99% on RA. Pt reports no symptoms, feeling much better. Confirmed with provider that next unit of blood was to be started. Obtained OK from provider ERIC and Pathologist RASHI DAVIS. H&H drawn after the 155 mL had been infused and infusion stopped was 6.7/20.0. Provider informed.
[2022-05-26 06:56] LABS: BUN Creatinine Ratio 25.9 (6-22); Blood Urea Nitrogen 14 mg/dL (9-20); Calcium 7.5 mg/dL (8.4-10.2); Carbon Dioxide 28 mmol/L (22-32); Chloride 103 mmol/L (98-107); Estimated Glomerular Filt Rate > 60 mL/min (>60); Glucose 110 mg/dL (80-110); HEMOLYSIS < 15 (0-50); Potassium 3.4 mmol/L (3.4-5.1); Sodium 134 mmol/L (137-145)
[2022-05-26] MEDS: ACETAMINOPHEN 325 MG TABLET 650 MG PO ×2 (07:41→23:58)
[2022-05-26 07:43] LABS: Anisocytosis 1+; Polychromasia 1+
[2022-05-26 11:03] LABS: Hematocrit 23.4 % (41-53)
[2022-05-26] MEDS: PANTOPRAZOLE 40 MG VIAL IV ×2 (11:14→21:05)
--- NOTE | 2022-05-26 12:06 | P.HP_ITS ---
History of Present Illness History of Present Illness Date Patient Seen: 05/26/22 Time Patient Seen: 12:06 Chief complaint: Light headed, SOB x 3 days Narrative: Severe anemia suspect GI cause. No anticoagulation. No blood seen in stools. Patient History Medical History History of atrial fibrillation Hypertension Surgical History H/O cardiac radiofrequency ablation Family & Social History Family History Father Atrial fibrillation Social History: household members spouse Prior Living Arrangements House Safety & Behavioral: Feels Safe in Current Yes Environment Been Physically Hurt or No Threatened By a Person Tobacco & Substance use: Smoking Status Never smoker alcohol intake frequency holiday/special occasion Substance Use Type does not use Meds Home Medications and Allergies Home Medications Medication Instructions Recorded Confirmed Type amlodipine 5 mg tablet 5 mg PO BID 05/25/22 05/25/22 History Allergies Allergy/AdvReac Type Severity Reaction Status Date / Time warfarin Allergy Intermediate Rash Verified 05/25/22 10:24 Review of Systems Review of Systems ROS: Yes All systems reviewed with the patient and are negative except as otherwise documented Exam Vital Signs (past 8 hours): - 05/26/22 05:17 05/26/22 04:08 05/26/22 04:33 Temperature 99.0 F 99 F 99 F Pulse Rate 98 H 98 H 85 Respiratory Rate 18 18 18 Blood Pressure 148/61 H 148/61 H 138/65 Pulse Oximetry 98 97 Oxygen Flow Rate 0 0 05/26/22 05:04 05/26/22 07:35 05/26/22 07:41 Temperature 98.7 F 99.7 F H 99.7 F H Pulse Rate 88 86 Respiratory Rate 18 16 Blood Pressure 124/69 129/69 Pulse Oximetry 99 Oxygen Flow Rate 0 05/26/22 07:52 05/26/22 08:53 05/26/22 09:00 Temperature 99.6 F 98.9 F 98.6 F Pulse Rate 79 88 Respiratory Rate 16 17 Blood Pressure 129/63 143/77 H Pulse Oximetry 99 Oxygen Flow Rate 0 Oxygen Delivery Method Room Air Oxygen Flow Rate 0 Const General: comfortable Nutritional Appearance: average body habitus Orientation: alert and oriented x3 HENMT Head: normocephalic and atraumatic Ears: hearing grossly normal bilaterally Neck Neck: trachea midline Chest Chest: normal inspection of the chest Resp Effort & Inspection: normal respiratory effort and able to speak in complete sentences Auscultation: clear to auscultation bilaterally Cardio Rate: tachycardic Rhythm: regular rhythm Other: had cardiac ablation for afib GI Palpation: soft Skin General: atrophy and pallor Hair: brittle Neuro General: patient alert, patient awake and patient oriented x3 Extrem General: pedal edema Other: swollen hands bilateral after 3.6 units of blood Psych Appearance: well kempt Mental Status: mental status grossly normal Mood: dysthymic mood Affect: blunted Attitude: cooperative Judgment: judgment good Objective Labs Result Diagrams: 05/26/22 10:50 05/26/22 04:50 Labs: Laboratory Results - last 24 hr 05/25/22 05/25/22 05/25/22 10:35 12:00 17:39 WBC RBC Hgb 7.4 L Hct 21.6 L MCV MCH MCHC RDW Plt Count Neut % (Auto) Lymph % (Auto) [place] % (Auto) Eos % (Auto) Baso % (Auto) Neut # (Auto) Lymph # (Auto) [place] # (Auto) Eos # (Auto) Baso # (Auto) RBC Morphology Polychromasia Anisocytosis Sodium Potassium Chloride Carbon Dioxide BUN Creatinine Estimated GFR BUN/Creatinine Ratio Glucose Calcium Total Bilirubin AST ALT Alkaline Phosphatase Total Protein Albumin Globulin Albumin/Globulin Ratio SARS-CoV-2 (PCR) Negative Blood Type A Positive Antibody Screen Negative Crossmatch See Detail Transfusion React Rpt Donor Unit # Lab Clerical Err Check Pre-Trans Blood Type Pre-Trans Vis Hemolysis Pre-Trans Antibody Scrn Post-Trans Blood Type Post-Tx Visible Hemolys Post-Trans Antibody Scrn Reaction Path Interpret 05/26/22 05/26/22 05/26/22 01:36 01:36 04:50 WBC 9.5 RBC 2.28 L Hgb 6.1 L* 6.7 L* Hct 18.1 L* 20.0 L* MCV 87.8 MCH 29.5 MCHC 33.6 RDW 15.5 H Plt Count 191 Neut % (Auto) 68.9 Lymph % (Auto) 21.6 L [place] % (Auto) 8.8 Eos % (Auto) 0.2 L Baso % (Auto) 0.5 Neut # (Auto) 6500 Lymph # (Auto) 2000 [place] # (Auto) 800 Eos # (Auto) 0 Baso # (Auto) 0 RBC Morphology Not Reportable Polychromasia 1+ H Anisocytosis 1+ H Sodium 133 L Potassium 3.4 Chloride 103 Carbon Dioxide 26 BUN 17 Creatinine 0.53 L Estimated GFR > 60 BUN/Creatinine Ratio 32.1 H Glucose 112 H Calcium 7.5 L Total Bilirubin 0.3 AST 24 ALT 13 Alkaline Phosphatase 34 L Total Protein 4.8 L Albumin 2.7 L Globulin 2.1 Albumin/Globulin Ratio 1.3 SARS-CoV-2 (PCR) Blood Type Antibody Screen Crossmatch Transfusion React Rpt Donor Unit # Lab Clerical Err Check Pre-Trans Blood Type Pre-Trans Vis Hemolysis Pre-Trans Antibody Scrn Post-Trans Blood Type Post-Tx Visible Hemolys Post-Trans Antibody Scrn Reaction Path Interpret 05/26/22 05/26/22 05/26/22 04:50 04:52 10:50 WBC RBC Hgb 8.0 L Hct 23.4 L MCV MCH MCHC RDW Plt Count Neut % (Auto) Lymph % (Auto) [place] % (Auto) Eos % (Auto) Baso % (Auto) Neut # (Auto) Lymph # (Auto) [place] # (Auto) Eos # (Auto) Baso # (Auto) RBC Morphology Polychromasia Anisocytosis Sodium 134 L Potassium 3.4 Chloride 103 Carbon Dioxide 28 BUN 14 Creatinine 0.54 L Estimated GFR > 60 BUN/Creatinine Ratio 25.9 H Glucose 110 Calcium 7.5 L Total Bilirubin AST ALT Alkaline Phosphatase Total Protein Albumin Globulin Albumin/Globulin Ratio SARS-CoV-2 (PCR) Blood Type Antibody Screen Crossmatch Transfusion React Rpt No discrepancies Donor Unit # =[id number] Lab Clerical Err Check No error found Pre-Trans Blood Type A positive Pre-Trans Vis Hemolysis No Pre-Trans Antibody Scrn Negative Post-Trans Blood Type A positive Post-Tx Visible Hemolys No Post-Trans Antibody Scrn Negative Reaction Path Interpret Assessment & Plan Assessment & Plan narrative: Admitted for fatigue and profound anemia Plan: EGD and colonoscopy to look for source of bleeding. COVID-19 COVID-19 status: Negative Time Spent With Patient Time with patient: less than 30 minutes Critical Care time: I spent a total of [] minutes of critical care time on this patient's care today; this time is exclusive of procedural time.
[2022-05-26] MEDS: LACTATED RINGERS 1,000 ML 42 ML IV (12:11)
--- NOTE | 2022-05-26 13:05 | P.OP.EGD&C_ITS ---
Operative Date/Time/Diagnoses Date of procedure: 05/26/22 Time of procedure: 13:05 Pre-op diagnosis: GI bleed with profound anemia Post-op diagnosis: same Procedure & Clinicians Study performed: EGD and colonoscopy with MAC Same procedure as scheduled: Yes Indications: Profound anemia and dark stools Surgeon: Ros Koenig Procedure Notes SCOAP/Timeout: Done Procedure in detail: Preop diagnosis: GI bleed, profound anemia Postop diagnosis: Same Operative procedure: EGD and colonoscopy with MAC Surgeon: Pushpa Koenig MD Findings: On the EGD, there was no reflux of blood into the stomach. The stomach and 1st and 2nd portion duodenum were without significant abnormality. Esophagus was normal as well. Colonoscopy showed no masses or source of bleeding. Did however show that the bleeding is coming from above the ileocecal valve. Blood at that point was dark. Procedure: Patient placed in the supine position, anesthetic was provided. I inserted the scope into the esophagus and advanced into the stomach. Insufflation with identified pylorus I intubated into the duodenum. Insufflation extraction scope including retroflex of the above findings. Colonoscopy was carried out under the same anesthetic. Rectal exam is performed showing normal tone no masses. Scope was inserted into the rectum advanced to ileocecal valve with minimal difficulty. Insufflation extraction scope includin g retroflex in the rectum had the above findings Impression: GI bleed still likely upper GI source of small bowel. No source identified in the stomach 1st, for 2nd portion of the duodenum. And no bleeding acutely from the colon. Old blood identified all the way up to the ileocecal valve Plan: Dr. Prajapati notified. And I ordered a CT abdomen with p.o. and IV contrast Specimen(s): none sent Complications: none Post-procedure Recommendations: Colonscopy in 10 years Follow up: as needed Disposition: PACU
--- NOTE | 2022-05-26 14:23 | CM.DANOTE ---
DCP Assessment: Payor: [employer] PCP: Jovany Richardson MD Pt is a 72 y.o. M who presented to the ED with complaint of shortness of breath and fatigue. Pt states that minimal exertions makes him feel out of breath and improves with rest. Pt has a history of afib and HTN. Pt admitted as Inpatient for gi bleed and symptomatic anemia. EGD and colonoscopy planned for today 05/26. DCP met with pt and pt spouse this afternoon following pt procedures. DCP introduced herself and role. Pt spouse states that they live in a 2 story home by [address] and pt is independent at baseline. Spouse states that pt still drives POV and denies any DME use. Spouse declines any needs at this time. Pt spouse wanted to know if pt was classified as inpatient. DCP confirmed. Verbalized to pt and pt spouse to please call for any questions that may arise. They are thankful for the discussion. No needs identified by DCP. P: Once pt is medically stable, pt to discharge home via spouse POV. Petra Salinas RN/RU Discharge Planning/Care Management Advanced directive, confirm from FAMILY Start: 05/25/22 15:37 Freq: Q24H Status: Active Protocol: Document 05/25/22 15:37 YAD (Rec: 05/25/22 15:38 YAD [id number]) Advance Directive, confirm on record Time 15:38 Person contacted patient Copy received No CM Discharge Assessment Start: 05/26/22 12:43 Freq: Status: Active Protocol: Document 05/26/22 13:08 AJ (Rec: 05/26/22 13:26 AJ [id number]) Discharge Planning Assessment Assigned [employer] Teacher Petra Salinas RN/RU Advance Directives? Yes Advance Directives on File No History Provided By Medical Record Prior Living Arrangements House Household Members spouse Independent with ADL's Yes Is patient alert and oriented? Yes Caregiver for Another No Discharge Plan Home Referrals Initiated None needed Additional Comment At this time Review Status In Process Please Provide Date Initial DC 05/26/22 Assessment Was Performed Next Review Type Continued Stay Review
[2022-05-26] MEDS: POTASSIUM CHLORIDE IN WATER 10 MEQ/100 ML PIGGYBACK 100 MEQ IV (15:14)
--- NOTE | 2022-05-26 16:12 | DI.CT.S_ITS ---
PROCEDURE: CT ABDOMEN PELVIS W CON INDICATIONS: Small bowel bleed TECHNIQUE: After the administration of intravenous contrast, axial sections acquired from the lung bases to the pubic symphysis. Coronal and sagittal reformats were performed. For radiation dose reduction, the following was used: automated exposure control, adjustment of mA and/or kV according to patient size. COMPARISON: None. FINDINGS: Lung bases clear. Normal liver other than scattered small cysts. No concerning liver lesion. Gallbladder normal. Spleen, pancreas, adrenal glands, and kidneys demonstrate no significant abnormality. No free fluid or free air. No abnormally thickened or dilated loop of bowel. No pericolonic or mesenteric inflammatory changes identified. No free pelvic fluid. Urinary bladder normal. No threshold enlarged pelvic or inguinal lymph node. No acute or suspicious osseous lesion. IMPRESSION: No acute finding. Please note that venous phase CT of the abdomen and pelvis is highly insensitive for gastrointestinal bleeding. Dictated by: Zach Hathaway M.D. on 05/26/2022 at 17:25 Approved by: Zach Hathaway M.D. on 05/26/2022 at 17:28
[2022-05-26] MEDS: POTASSIUM CHLORIDE IN WATER 10 MEQ/100 ML PIGGYBACK 80 MEQ IV (16:36)
--- NOTE | 2022-05-26 17:30 | P.PN_ITS ---
Subjective Subjective Date Patient Seen: 05/26/22 Interval history: Patient has had documented melena. No further dizziness or syncope. He has received 4 units prbcs. Patient underwent EGD/Cscope today. No upper or lower bleeding. Evidence of bleeding from the ileocecal valve noted. Abd/CT pending. Exam Vital Signs (past 8 hours): - 05/26/22 12:12 05/26/22 13:04 05/26/22 13:10 Temperature 98.6 F 98.6 F Pulse Rate 95 H 80 80 Respiratory Rate 15 16 18 Blood Pressure 139/74 98/52 L 104/58 L Pulse Oximetry 99 95 Oxygen Delivery Method Room Air Room Air Room Air Oxygen Flow Rate 05/26/22 13:18 05/26/22 13:29 05/26/22 13:50 Temperature 98.6 F 98.6 F 98.6 F Pulse Rate 82 76 86 Respiratory Rate 16 18 19 Blood Pressure 104/68 109/59 L 142/65 H Pulse Oximetry 96 99 98 Oxygen Delivery Method Room Air Room Air Oxygen Flow Rate 0 05/26/22 15:12 05/26/22 14:20 05/26/22 15:23 Temperature Pulse Rate 89 86 Respiratory Rate 20 19 Blood Pressure 131/67 143/55 H Pulse Oximetry 97 97 97 Oxygen Delivery Method Room Air Oxygen Flow Rate 0 0 0 Oxygen Delivery Method Room Air Oxygen Flow Rate 0 Narrative Exam Narrative: Pleasant male in no acute distress Resp Other: Lungs: Clear To Auscultation Cardio Other: CV: RRR nlSl S2 GI Other: Abd; soft/non tender/ non distended/ no HSM Extrem Other: no Edema Objective Labs Result Diagrams: 05/26/22 10:50 05/26/22 04:50 Labs: Laboratory Results - last 24 hr 05/25/22 05/25/22 05/26/22 10:35 17:39 01:36 WBC RBC Hgb 7.4 L 6.1 L* Hct 21.6 L 18.1 L* MCV MCH MCHC RDW Plt Count Neut % (Auto) Lymph % (Auto) [place] % (Auto) Eos % (Auto) Baso % (Auto) Neut # (Auto) Lymph # (Auto) [place] # (Auto) Eos # (Auto) Baso # (Auto) RBC Morphology Polychromasia Anisocytosis Sodium Potassium Chloride Carbon Dioxide BUN Creatinine Estimated GFR BUN/Creatinine Ratio Glucose Calcium Total Bilirubin AST ALT Alkaline Phosphatase Total Protein Albumin Globulin Albumin/Globulin Ratio Blood Type A Positive Antibody Screen Negative Crossmatch See Detail Transfusion React Rpt Donor Unit # Lab Clerical Err Check Pre-Trans Blood Type Pre-Trans Vis Hemolysis Pre-Trans Antibody Scrn Post-Trans Blood Type Post-Tx Visible Hemolys Post-Trans Antibody Scrn Reaction Path Interpret 05/26/22 05/26/22 05/26/22 01:36 04:50 04:50 WBC 9.5 RBC 2.28 L Hgb 6.7 L* Hct 20.0 L* MCV 87.8 MCH 29.5 MCHC 33.6 RDW 15.5 H Plt Count 191 Neut % (Auto) 68.9 Lymph % (Auto) 21.6 L [place] % (Auto) 8.8 Eos % (Auto) 0.2 L Baso % (Auto) 0.5 Neut # (Auto) 6500 Lymph # (Auto) 2000 [place] # (Auto) 800 Eos # (Auto) 0 Baso # (Auto) 0 RBC Morphology Not Reportable Polychromasia 1+ H Anisocytosis 1+ H Sodium 133 L 134 L Potassium 3.4 3.4 Chloride 103 103 Carbon Dioxide 26 28 BUN 17 14 Creatinine 0.53 L 0.54 L Estimated GFR > 60 > 60 BUN/Creatinine Ratio 32.1 H 25.9 H Glucose 112 H 110 Calcium 7.5 L 7.5 L Total Bilirubin 0.3 AST 24 ALT 13 Alkaline Phosphatase 34 L Total Protein 4.8 L Albumin 2.7 L Globulin 2.1 Albumin/Globulin Ratio 1.3 Blood Type Antibody Screen Crossmatch Transfusion React Rpt Donor Unit # Lab Clerical Err Check Pre-Trans Blood Type Pre-Trans Vis Hemolysis Pre-Trans Antibody Scrn Post-Trans Blood Type Post-Tx Visible Hemolys Post-Trans Antibody Scrn Reaction Path Interpret 05/26/22 05/26/22 04:52 10:50 WBC RBC Hgb 8.0 L Hct 23.4 L MCV MCH MCHC RDW Plt Count Neut % (Auto) Lymph % (Auto) [place] % (Auto) Eos % (Auto) Baso % (Auto) Neut # (Auto) Lymph # (Auto) [place] # (Auto) Eos # (Auto) Baso # (Auto) RBC Morphology Polychromasia Anisocytosis Sodium Potassium Chloride Carbon Dioxide BUN Creatinine Estimated GFR BUN/Creatinine Ratio Glucose Calcium Total Bilirubin AST ALT Alkaline Phosphatase Total Protein Albumin Globulin Albumin/Globulin Ratio Blood Type Antibody Screen Crossmatch Transfusion React Rpt No discrepancies Donor Unit # =[id number] Lab Clerical Err Check No error found Pre-Trans Blood Type A positive Pre-Trans Vis Hemolysis No Pre-Trans Antibody Scrn Negative Post-Trans Blood Type A positive Post-Tx Visible Hemolys No Post-Trans Antibody Scrn Negative Reaction Path Interpret [facility] Medical History History of atrial fibrillation Hypertension Surgical History H/O cardiac radiofrequency ablation Family History Father Atrial fibrillation Social History household members: spouse Smoking Status: Never smoker Assessment & Plan Assessment & Plan narrative: 72-year-old male with a history of hypertension, history of paroxysmal atrial fi brillation status post ablation admitted to the hospital with an acute blood loss anemia likely secondary to upper GI bleed * Patient had a near syncopal episode * Found to be anemic with a hemoglobin of 6 and hematocrit of 18 * Patient was Hemoccult positive in the emergency department * Will continue Protonix 40 IV b.i.d. * Will transfuse to hemoglobin of 8 * Patient will be made NPO * Surgery consultation obtained, patient to have upper and lower endoscopy tomorrow * Bowel prep started this evening * EGD/C-scope- * On the EGD, there was no reflux of blood into the stomach.? The stomach and 1st and 2nd portion duodenum were without significant abnormality.? Esophagus was normal as well.? Colonoscopy showed no masses or source of bleeding.? Did however show that the bleeding is coming from above the ileocecal valve.? Blood at that point was dark. Abd/Pelvic CT to evaluate bleeding further. No acute finding.? Please note that venous phase CT of the abdomen and pelvis is highly insensitive for gastrointestinal bleeding. ? will discuss with surgery next steps? outpatient pill endoscopy vs. push endoscopsy will monitor H/H closely * Hypertension * Patient previously on amlodipine 5 mg twice daily * Will hold for now, blood pressure markedly elevated can resume * History of atrial fibrillation * Status post ablation, recurrent afib documented, rate controlled, given bleeding no a/c at this time * * On no anticoagulant at this point * Will continue to monitor Time Spent With Patient Critical Care time: I spent a total of [] minutes of critical care time on this patient's care today; this time is exclusive of procedural time.
[2022-05-26 17:46] LABS: Hematocrit 21.9 % (41-53); Hemoglobin 7.5 g/dL (13.5-17.5)
[2022-05-26] MEDS: ZOLPIDEM 5 MG TABLET 10 MG PO (21:04)
[2022-05-27] VITALS: BP 135/59; PULSE 78; RESP 18; TEMP 37.1; O2SAT 97
[2022-05-27] MEDS: ACETAMINOPHEN 325 MG TABLET 650 MG PO (05:31)
[2022-05-27 05:37] VITALS: BP 135/62; PULSE 80; RESP 16; TEMP 36.7; O2SAT 98
[2022-05-27 06:34] LABS: Add Manual Diff / Slide Review NO; Basophils Absolute Auto 0 /uL (0-100); Basophils Percent Auto 0.7 % (0-2); Eosinophils Absolute Auto 100 /uL (0-450); Eosinophils Percent Auto 1.2 % (2-4); Hematocrit 22.3 % (41-53); Hemoglobin 7.5 g/dL (13.5-17.5); Lymphocytes Absolute Auto 1700 /uL (1100-4500); Mean Corpuscular HGB Conc 33.9 % (30-36); Mean Corpuscular Hemoglobin 29.5 PG (26-34); Mean Corpuscular Volume 87.1 fL (80-100); Monocytes Absolute Auto 700 /uL (0-900); Monocytes Percent Auto 10.7 % (3-14); Neutrophils Absolute Auto 3800 /uL (1500-7000); Neutrophils Percent Auto 60.4 % (50-75); Platelet Count 199 X10^3/uL (150-400); Red Blood Cell Count 2.56 X10^6/uL (4.5-5.9); Red Cell Distribution Width 15.6 % (11.6-14.8); White Blood Cell Count 6.3 X10^3/uL (4.5-11.0)
[2022-05-27 06:51] LABS: Alanine Aminotransferase 21 IU/L (<50); Albumin Globulin Ratio 1.3 (1.0-2.8); Alkaline Phosphatase 35 U/L (38-126); Aspartate Aminotransferase 39 IU/L (17-59); BUN Creatinine Ratio 13.6 (6-22); Bilirubin Total 0.6 mg/dL (0.2-1.3); Blood Urea Nitrogen 8 mg/dL (9-20); Calcium 7.9 mg/dL (8.4-10.2); Carbon Dioxide 26 mmol/L (22-32); Chloride 104 mmol/L (98-107); Estimated Glomerular Filt Rate > 60 mL/min (>60); Globulin 2.3 g/dL (1.7-4.1); Glucose 97 mg/dL (80-110); HEMOLYSIS < 15 (0-50); Potassium 3.8 mmol/L (3.4-5.1); Sodium 135 mmol/L (137-145); Total Protein 5.3 g/dL (6.3-8.2)
[2022-05-27 08:00] VITALS: BP 140/78; PULSE 84; RESP 17; TEMP 37; O2SAT 97
--- NOTE | 2022-05-27 08:10 | P.CALLCOV_ITS ---
Call Coverage Note Note Date of Patient Contact: 05/27/22 Time of Patient Contact: 08:11 Narrative of Care Provided: EGD, colonoscopy and Abd CT are all inconclusive of source. The one thing determined is that it is most likely small bowel origin. At this point, with stable hct, I would consider home on po iron with follow up [facility] GI department for possible capsule study to evaluate for small bowel MOE's.
[2022-05-27] MEDS: PANTOPRAZOLE 40 MG VIAL IV (08:49)
--- NOTE | 2022-05-27 11:06 | PC.NURSE ---
Pt stateshe is ready and expecting to go home this morning. Pt very eager to go. RN discussed d/c plan with Dr. Leon. See d/c orders. arrived at 09:30 D/c instructions given. Both Pt and state understanding of instructions. IV d/c'd intact. Pt escorted to car by LORETTA Barrios.
--- NOTE | 2022-05-27 19:25 | P.DS_ITS ---
History of Present Illness History of Present Illness Date Patient Seen: 05/27/22 Chief complaint: Light headed, SOB x 3 days Narrative: 72-year-old gentleman with hypertension, atrial fibrillation status post ablation x2, who was admitted with lightheadedness and syncope, found to be ane jeff and had evidence of GI bleeding. Initial hemoglobin was. He received 4 units of packed red blood cells. He underwent EGD and colonoscopy. His cell to have an upper GI series a bleeding in the small bowel. There is no active bleeding noted in the colon. Old blood was identified at the ileocecal valve. Diet was advanced on May 26 to clear liquids, which he tolerated well. He passed 1 small liquid stool, no hematemesis, no melena, no hematochezia. He reported he was feeling back to baseline and was requesting discharge on May 27. Discharge Providers Provider Date of admission: 05/25/22 12:11 Discharge Date: 05/27/22 Primary care physician: Jovany Richardson MD Discharge provider: Kellee Leon MD Summary Hospital Course Discharge Diagnosis: Upper GI bleed Symptomatic anemia, acute blood loss Syncope secondary to GI bleed, resolved without recurrence Hypertension Previous atrial fibrillation status post ablation with no recurrence Hospital Course: Please see above Time Spent with Patient Time spent: Greater than 30 minutes (Approximately 35 minute spent at bedside in patient education, evaluation, and coordinating discharge) Exam Vital Signs (past 8 hours): Oxygen Delivery Method Room Air Oxygen Flow Rate 0 Narrative Exam Narrative: GEN: Very pleasant middle-aged male, Alert and oriented x 3, NAD HEENT:NC, Face symmetric CHEST: Respiratory excursions symmetric, CTAB CV: RRR, no M/R/G ABD: Soft, NT/ND, BT present in all 4 quadrants, no organomegaly or masses EXTR: warm, well perfused, no C/C/E SKIN: warm and dry, no rash NEURO: Alert and oriented x 3, nonfocal Objective Labs Result Diagrams: 05/27/22 06:05 05/27/22 06:05 Labs: Laboratory Results - last 24 hr 05/27/22 05/27/22 06:05 06:05 WBC 6.3 RBC 2.56 L Hgb 7.5 L Hct 22.3 L MCV 87.1 MCH 29.5 MCHC 33.9 RDW 15.6 H Plt Count 199 Neut % (Auto) 60.4 Lymph % (Auto) 27.0 [place] % (Auto) 10.7 Eos % (Auto) 1.2 L Baso % (Auto) 0.7 Neut # (Auto) 3800 Lymph # (Auto) 1700 [place] # (Auto) 700 Eos # (Auto) 100 Baso # (Auto) 0 Sodium 135 L Potassium 3.8 Chloride 104 Carbon Dioxide 26 BUN 8 L Creatinine 0.59 L Estimated GFR > 60 BUN/Creatinine Ratio 13.6 Glucose 97 Calcium 7.9 L Total Bilirubin 0.6 AST 39 ALT 21 Alkaline Phosphatase 35 L Total Protein 5.3 L Albumin 3.0 L Globulin 2.3 Albumin/Globulin Ratio 1.3 PFSH Medical History History of atrial fibrillation Hypertension Surgical History H/O cardiac radiofrequency ablation Family History Father Atrial fibrillation Social History household members: spouse Smoking Status: Never smoker Discharge Plan Discharge Plan Patient Disposition: Home Provider Discharge Comment: Monitor every stool. If stool is black/tarry/maroon/has blood clots--I recommend you go to [facility] ED for further evaluation as you will need to see gastroenterology for consideration of a capsule endoscopy (pill camera) and/or tagged RBC scan and angiography (radiology procedure to stop bleeding). If you have shortness of breath/chest pain/lightheadedness go to the closest ED Call [facility] on Sunday to get established with a Regulatory Internship. Advise the receptionist secretary there you were admitted with a GI bleed and had scopes here. Avoid foods w/red dyes and beets for the next couple of weeks. I would start Iron supplementation (ferrous gluconate is preferred) in a week or so. It will turn stool black and can constipate. Clear liquid diet today Full liquid diet tomorrow Then regular diet the following day I recommend a follow up CBC in one week Discharge orders & Medications Prescriptions: New pantoprazole [Protonix] 40 mg tablet,delayed release (DR/EC) 40 mg PO BID Qty: 60 3RF Continued amlodipine 5 mg tablet 5 mg PO BID Follow up/Referrals: Jovany Richardson MD [Primary Care Provider] - Diet/Activity/Treatments Diet comment: See above Activity: As tolerated Oxygen: N/A Visit Report/Discharge Packet Instructions: Hematocrit, Colonoscopy, Upper GI Endoscopy, DI for Heart Failu re, DI for Colon Polypectomy, DI for Hemorrhoid Banding, DI for Gastroesophageal Reflux Disease (GERD), DI for Hemorrhoids, DI for Gastritis, DI for Gastric Ulcer, DI for Hiatal Hernia, DI for Prescription Opioid Use, DI for Diverticulosis, DI for Stomach Polyps Stand Alone Forms: Colonoscopy Result: [facility], Colonoscopy Result: [facility], Colonoscopy Result: [facility], EGD Result: [facility], EGD Result: [facility], EGD Results: [facility] Discharge Data Primary Care Provider: Jovany Richardson
== END 2022-05-27 10:00 | disposition home or self-care (01) | DRG 378 ==
LOC: ED 11:21 → AC 12:42
PROVIDERS: Nurse Practitioner Family; Surgery; Admitting Provider Internal Medicine; Emergency Provider Emergency Medicine; PCP Family Medicine Sports Medicine; Referring Provider Emergency Medicine; Visit Provider Internal Medicine
PROC: 0DJ08ZZ Inspection of Upper Intestinal Tract, Via Natural or Artificial Opening Endoscopic (ICD-10-PCS; CPT 43235; principal; 2022-05-26 12:45)
PROC: 0DJD8ZZ Inspection of Lower Intestinal Tract, Via Natural or Artificial Opening Endoscopic (ICD-10-PCS; CPT 45378; 2022-05-26 12:45)
DX: K92.2 Gastrointestinal hemorrhage, unspecified (principal); D62 Acute posthemorrhagic anemia; I10 Essential (primary) hypertension; Z20.822 Contact with and (suspected) exposure to COVID-19
CPT/HCPCS: 36415; 36430; 71045; 74177; 80048; 80053; 82550; 83690; 83735; 83880; 84484; 85014; 85018; 85025; 85379; 85610; 85730; 86078; 86850; 86900; 86901; 87635; 93005; 93010; 96374; 99284; C9803; P9016; C9113; J0330; J2405; J2704; J3010; Q9967

== ENCOUNTER 2025-03-20 14:36 | Emergency (ER) | payer MEDICARE, SELFPAY ==
[2022-05-25 15:21] VITALS: BMI 30.8
[2025-03-20] VITALS (20 sets, daily range): BP systolic 112–144; BP diastolic 53–82; PULSE 80–106; RESP 10–23; TEMP 36.7; O2SAT 96–99; BMI 31.1
--- NOTE | 2025-03-20 14:43 | EKG_ITS ---
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
--- NOTE | 2025-03-20 14:54 | ED.DIZZY ---
HPI - Dizziness General Chief Complaint: Syncope Stated Complaint: syncope Time Seen by Provider: 03/20/25 14:51 Source: patient Mode of arrival: EMS History of Present Illness HPI Narrative: Patient is a 75-year-old male history of GI bleeding presenting to day with syncopal episode. He reports he had at least a dozen black stools yesterday. According to the he has been feeling ill the last couple of days kind of fever body aches thought he had the flu. Then had black stool yesterday. No nausea or vomiting. No abdominal pain. He was lying in bed he tried to get up he was not able to get up and passed out. No significant head injury. He is not on antiplatelet or anticoagulation medication. He does previously have a history of atrial fibrillation but has had an ablation in his now in sinus rhythm. Related Data Home Medications Medication Instructions Recorded Confirmed amlodipine 5 mg tablet 5 mg PO BID 05/25/22 05/25/22 Previous Rx's Medication Instructions Recorded pantoprazole 40 mg tablet,delayed 40 mg PO BID #60 tabs 05/27/22 release (Protonix) Allergies Allergy/AdvReac Type Severity Reaction Status Date / Time warfarin Allergy Intermediate Rash Verified 03/20/25 14:44 Patient History Medical History History of atrial fibrillation Hypertension Surgical History H/O cardiac radiofrequency ablation Family History Father Atrial fibrillation Social History household members: spouse Smoking Status: Unknown if ever smoked Smoking Status: Unknown if ever smoked alcohol intake frequency: holidays/special occasions only Exam Initial Vital Signs Initial Vital Signs: Vital Signs Temperature 98.1 F 03/20/25 14:36 Pulse Rate 81 03/20/25 14:36 Respiratory Rate 13 03/20/25 14:36 Blood Pressure 123/61 03/20/25 14:36 Pulse Oximetry 98 03/20/25 14:36 Oxygen Delivery Method Room Air 03/20/25 14:36 GENERAL: Alert pale 75-year-old male and in no acute distress. HEENT: Head atraumatic,EOMI, pupils reactive, face symmetric, moist mucous membranes CARDIOVASCULAR: Regular rate and rhythm without murmurs, rubs or gallops. RESPIRATORY: Breath sounds equal bilaterally, no wheezes rales or rhonchi. ABDOMEN: Soft, nontender. Normoactive bowel sounds all 4 quadrants. No guarding or rebound. RECTAL: No gross stool but Hemoccult positive EXTREMITIES: Normal range of motion, no clubbing or edema. Neurovascularly intact NEUROLOGICAL: Alert and oriented x4.Normal gait and speech. Cranial nerves II through XII grossly intact. 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 Course Orders Ordered: ED Orders 03/20/25 14:39 Complete Blood Count AUTO DIFF Stat Comprehensive Metabolic Panel Stat Lactate (Lactic Acid) Stat PTT Partial Thromboplastin [place] Stat Prothrombin Time INR Stat Troponin & CK Cardiac Panel Stat Type and Screen Stat 03/20/25 14:43 EKG-12 Lead Stat 03/20/25 14:58 CT angio Abd/Pel GI Bleed Stat 03/20/25 16:54 Hemoglobin and Hematocrit Stat Ondansetron HCl (Ondansetron 4 Mg/2 Ml Inj) 4 mg IV NOW PRN PRN Reason: Nausea And Vomiting Last Admin: 03/20/25 15:36 Dose: 4 mg Documented By: ORLY Ondansetron HCl (Ondansetron 4 Mg Odt) 4 mg PO NOW PRN PRN Reason: Nausea And Vomiting Discontinued Medications Pantoprazole Sodium (Pantoprazole 40 Mg Vial) 80 mg IV NOW ONE Stop: 03/20/25 14:52 Last Admin: 03/20/25 14:59 Dose: 80 mg Documented By: ORLY Vital Signs Vital signs: Vital Signs - 8 hr 03/20/25 14:36 03/20/25 14:41 03/20/25 15:00 Temperature 98.1 F Pulse Rate 81 84 81 Respiratory Rate 13 21 16 Blood Pressure 123/61 Pulse Oximetry 98 98 99 Oxygen Delivery Method Room Air 03/20/25 15:00 03/20/25 15:14 03/20/25 15:14 Temperature Pulse Rate 86 Respiratory Rate 20 Blood Pressure 137/59 L 132/63 Pulse Oximetry 98 Oxygen Delivery Method 03/20/25 15:30 03/20/25 15:30 03/20/25 16:00 Temperature Pulse Rate 82 82 Respiratory Rate 15 14 Blood Pressure 138/55 L Pulse Oximetry 99 98 Oxygen Delivery Method 03/20/25 16:00 03/20/25 16:30 03/20/25 16:31 Temperature Pulse Rate 87 85 Respiratory Rate 22 20 Blood Pressure 122/56 L Pulse Oximetry 98 99 Oxygen Delivery Method 03/20/25 16:31 03/20/25 17:00 03/20/25 17:00 Temperature Pulse Rate 83 Respiratory Rate 10 L Blood Pressure 112/53 L 121/57 L Pulse Oximetry 98 Oxygen Delivery Method 03/20/25 17:30 03/20/25 17:30 03/20/25 18:00 Temperature Pulse Rate 80 106 H Respiratory Rate 17 23 Blood Pressure 119/58 L Pulse Oximetry 99 96 Oxygen Delivery Method 03/20/25 18:01 03/20/25 18:01 03/20/25 18:30 Temperature Pulse Rate 104 H 83 Respiratory Rate 22 13 Blood Pressure 144/61 H Pulse Oximetry 97 Oxygen Delivery Method 03/20/25 18:30 Temperature Pulse Rate Respiratory Rate Blood Pressure 130/58 L Pulse Oximetry Oxygen Delivery Method MDM - Dizziness Lab Data 03/20/25 16:54 03/20/25 14:39 Labs: Lab Results 03/20/25 03/20/25 03/20/25 Range/Units 14:39 16:54 17:04 WBC 12.7 H (4.5-11.0) X10^3/uL RBC 2.66 L (4.5-5.9) X10^6/uL Hgb 8.0 L 7.5 L (13.5-17.5) g/dL Hct 23.9 L 22.3 L (41-53) % MCV 90.0 (80-100) fL MCH 29.9 (26-34) PG MCHC 33.3 (30-36) % RDW 13.5 (11.6-14.8) % Plt Count 296 (150-400) X10^3/uL Neut % (Auto) 51.4 (50-75) % Lymph % (Auto) 38.7 (25-40) % [place] % (Auto) 8.7 (3-14) % Eos % (Auto) 0.6 L (2-4) % Baso % (Auto) 0.6 (0-2) % Neut # (Auto) 6500 (1848-1795) /uL Lymph # (Auto) 4900 H (0258-8463) /uL [place] # (Auto) 1100 H (0-900) /uL Eos # (Auto) 100 (0-450) /uL Baso # (Auto) 100 (0-100) /uL PT 15.0 H (9.4-12.5) SECONDS INR 1.3 (0.9-1.3) APTT 24 L (25.1-36.5) SECONDS Sodium 133 L (137-145) mmol/L Potassium 3.7 (3.4-5.1) mmol/L Chloride 103 (98-107) mmol/L Carbon Dioxide 22 (22-32) mmol/L BUN 26 H (9-20) mg/dL Creatinine 0.64 L (0.66-1.25) mg/dL Estimated GFR > 60 (>60) mL/min BUN/Creatinine Ratio 40.6 H (6-22) Glucose 173 H (70-99) mg/dL Lactate 2.4 H 1.4 (0.7-2.1) mmol/L Calcium 8.1 L (8.4-10.2) mg/dL Total Bilirubin 0.4 (0.2-1.3) mg/dL AST 28 (17-59) IU/L ALT 20 (<50) IU/L Alkaline Phosphatase 41 (38-126) U/L Total Creatine Kinase 109 (55-170) U/L Troponin I < 0.012 (0.01-0.034) ng/mL Total Protein 5.6 L (6.3-8.2) g/dL Albumin 3.3 L (3.5-5.0) g/dL Globulin 2.3 (1.7-4.1) g/dL Albumin/Globulin Ratio 1.4 (1.0-2.8) Blood Type A Positive Antibody Screen Negative Point of Care Testing Stool Occult Blood Positive Urine Dip Bedside Urine Glucose Negative Bedside Urine Bilirubin - Negative Bedside Urine Ketone + 15 Urine Specific [place] 1.015 Bedside Urine Occult Blood - Negative Bedside Urine pH 5.5 Bedside Urine Protein - Negative Bedside Urine Urobilinogen - Negative Bedside Urine Nitrite - Negative Bedside Urine Leukocytes - Negative Esterase Imaging Data CT scan - abdomen/pelvis: Radiologist's Impression: PROCEDURE: CT ANGIO ABD/PEL GI BLEED INDICATIONS: Syncope, black stool TECHNIQUE: After the administration of intravenous contrast, 2.5 mm thick sections acquired from the diaphragm to the symphysis. 10 mm maximum-intensity projection (MIP) reformats were then acquired. For radiation dose reduction, the following was used: automated exposure control. COMPARISON: [facility], CT, CT ABDOMEN PELVIS W CON, 05/26/2022, 17:10. FINDINGS: Image Quality: Diagnostic. Abdominal aorta: No aortic aneurysm or evidence of acute aortic syndrome. Mesenteric arteries: Patent without hemodynamically significant stenosis. Renal arteries: Patent without hemodynamically significant stenosis. OTHER: Lower Chest: No significant findings. Liver: Hypoattenuating hepatic foci likely cysts. Liver is enlarged measuring 20.3 cm. Gallbladder: No radiopaque gallstones or wall thickening. Biliary ducts: No biliary dilation. Pancreas: No ductal dilation. Spleen: Size is within normal limits. Adrenal Glands: No adrenal nodules. Kidneys and Ureters: No hydronephrosis. No solid mass. No complex renal cystic lesion which requires follow up. Stomach and Bowel: Normal colonic caliber, without significant wall thickening. There is heterogeneous masslike appearance in the gastric lumen it measures approximately 9 years. Peritoneum: No abnormal intraperitoneal fluid. No free air. Ventral Wall: Mild fat containing ventral hernia. Abdominal Nodes: No retroperitoneal or mesenteric adenopathy by size criteria. Vessels: Aorta and inferior vena cava are normal in size. PELVIS: Pelvic Organs: Unremarkable. Bladder: Unremarkable. Pelvic Nodes: No enlarged lymph nodes. Miscellaneous: No inguinal hernias are seen. Bones: No aggressive osseous abnormality. IMPRESSION: Heterogeneous masslike appearance in the gastric lumen. While this could be a large consolidated mass of ingested food, given history of melena, malignancy or other etiology cannot be excluded. Further evaluation with endoscopy is recommended. Dictated by: Radha Lagunas M.D. on 03/20/2025 at 15:40 ECG Data Attestation: I personally reviewed and interpreted this ECG as follows: Prior ECG tracings: available for review Interpretation: Sinus rhythm rate 84 no ischemia PVC noted MDM Narrative Medical decision making narrative: MDM CC: Syncope Complicating co-morbidities: Prior GI bleed in 2021, AFib no anticoagulation or antiplatelet medications Corroborating data: [ ] Data collected from: Family patient Medical records reviewed: Colonoscopy EGD in 2021, reports that the esophagus was normal. Colonoscopy showed no masses or source of bleeding. Did however show that bleed do with coming from above ileocecal valve blood at that point was dark. Impression GI bleed still likely upper source of small bowel no source is identified. Differential considered: Upper versus lower GI bleed Exam documented above, pertinent findings include: Pale 75-year-old male guaiac-positive abdomen soft nontender no respiratory distress Lab Test results independently reviewed as above. Pertinent findings: Hemoglobin 8.0/23.9 --> 7.5/22.3, previous hemoglobin is during admission in 2021 of prior GI bleed WBC is 12.7 Lactate 2.4-->1.4 Sodium 133 potassium 3.7 chloride 103 carbon dioxide 22 BUN 26 creatinine 0.64 Troponin negative Independently reviewed EKG as above No acute ischemia PVC noted Imaging studies independently reviewed: CT abdomen pelvis does show possible masslike structure in the gastric region. No extravasation Consultations: Dr. Diaz, hospitalist kindly accepts but request talking to surgery Dr. Espinoza, reports that patient has already had a colonoscopy and EGD likely needs higher level of care to find source of bleeding Dr. Shankar at [facility] kindly accepts patient GI physician recommended an NG tube although I did not talk with them at [facility] Treatments: Protonix Re-evaluations: Patient did not want an NG tube and declined and refused Discussion: Patient is a 75-year-old male presenting today after a syncopal episode. He reports having multiple black tarry stools yesterday. He previously had a GI bleed 2 years ago. He was guaiac positive with anemia but hemodynamically stable. Given Protonix and Zofran here in the ED. No concern for cirrhosis or need for octreotide at this time. Hemoglobin slowly trending down but no need for acute blood transfusion at this time. Patient is being transferred to higher level of care. Discharge Plan Departure Patient Disposition: [facility] Clinical Impression: Acute GI bleeding, Vaso-vagal reaction, Anemia Prescriptions: No Action amlodipine 5 mg tablet 5 mg PO BID pantoprazole [Protonix] 40 mg tablet,delayed release (DR/EC) 40 mg PO BID Qty: 60 3RF Referrals: Jovany Richardson MD [Primary Care Provider] -
--- NOTE | 2025-03-20 14:58 | DI.CT.S_ITS ---
PROCEDURE: CT ANGIO ABD/PEL GI BLEED INDICATIONS: Syncope, black stool TECHNIQUE: After the administration of intravenous contrast, 2.5 mm thick sections acquired from the diaphragm to the symphysis. 10 mm maximum-intensity projection (MIP) reformats were then acquired. For radiation dose reduction, the following was used: automated exposure control. COMPARISON: Located [facility], CT, CT ABDOMEN PELVIS W CON, 05/26/2022, 17:10. FINDINGS: Image Quality: Diagnostic. Abdominal aorta: No aortic aneurysm or evidence of acute aortic syndrome. Mesenteric arteries: Patent without hemodynamically significant stenosis. Renal arteries: Patent without hemodynamically significant stenosis. OTHER: Lower Chest: No significant findings. Liver: Hypoattenuating hepatic foci likely cysts. Liver is enlarged measuring 20.3 cm. Gallbladder: No radiopaque gallstones or wall thickening. Biliary ducts: No biliary dilation. Pancreas: No ductal dilation. Spleen: Size is within normal limits. Adrenal Glands: No adrenal nodules. Kidneys and Ureters: No hydronephrosis. No solid mass. No complex renal cystic lesion which requires follow up. Stomach and Bowel: Normal colonic caliber, without significant wall thickening. There is heterogeneous masslike appearance in the gastric lumen it measures approximately 9 years. Peritoneum: No abnormal intraperitoneal fluid. No free air. Ventral Wall: Mild fat containing ventral hernia. Abdominal Nodes: No retroperitoneal or mesenteric adenopathy by size criteria. Vessels: Aorta and inferior vena cava are normal in size. PELVIS: Pelvic Organs: Unremarkable. Bladder: Unremarkable. Pelvic Nodes: No enlarged lymph nodes. Miscellaneous: No inguinal hernias are seen. Bones: No aggressive osseous abnormality. IMPRESSION: Heterogeneous masslike appearance in the gastric lumen. While this could be a large consolidated mass of ingested food, given history of melena, malignancy or other etiology cannot be excluded. Further evaluation with endoscopy is recommended. Dictated by: Radha Lagunas M.D. on 03/20/2025 at 15:40 Approved by: Radha Lagunas M.D. on 03/20/2025 at 15:43
[2025-03-20] MEDS: PANTOPRAZOLE 40 MG VIAL 80 MG IV (14:59)
[2025-03-20 15:02] LABS: Add Manual Diff / Slide Review NO; Basophils Absolute Auto 100 /uL (0-100); Basophils Percent Auto 0.6 % (0-2); Eosinophils Absolute Auto 100 /uL (0-450); Eosinophils Percent Auto 0.6 % (2-4); Hematocrit 23.9 % (41-53); Lymphocytes Absolute Auto 4900 /uL (1100-4500); Lymphocytes Percent Auto 38.7 % (25-40); Mean Corpuscular HGB Conc 33.3 % (30-36); Mean Corpuscular Hemoglobin 29.9 PG (26-34); Monocytes Absolute Auto 1100 /uL (0-900); Monocytes Percent Auto 8.7 % (3-14); Neutrophils Absolute Auto 6500 /uL (1500-7000); Neutrophils Percent Auto 51.4 % (50-75); Platelet Count 296 X10^3/uL (150-400); Red Blood Cell Count 2.66 X10^6/uL (4.5-5.9); Red Cell Distribution Width 13.5 % (11.6-14.8); White Blood Cell Count 12.7 X10^3/uL (4.5-11.0)
[2025-03-20 15:11] LABS: Alanine Aminotransferase 20 IU/L (<50); Albumin 3.3 g/dL (3.5-5.0); Albumin Globulin Ratio 1.4 (1.0-2.8); Alkaline Phosphatase 41 U/L (38-126); Aspartate Aminotransferase 28 IU/L (17-59); BUN Creatinine Ratio 40.6 (6-22); Bilirubin Total 0.4 mg/dL (0.2-1.3); Blood Urea Nitrogen 26 mg/dL (9-20); Calcium 8.1 mg/dL (8.4-10.2); Carbon Dioxide 22 mmol/L (22-32); Chloride 103 mmol/L (98-107); Creatine Kinase 109 U/L (55-170); Estimated Glomerular Filt Rate > 60 mL/min (>60); Globulin 2.3 g/dL (1.7-4.1); Glucose 173 mg/dL (70-99); HEMOLYSIS 37 (0-50); Potassium 3.7 mmol/L (3.4-5.1); Sodium 133 mmol/L (137-145); Total Protein 5.6 g/dL (6.3-8.2)
[2025-03-20 15:12] LABS: Lactate (Lactic Acid) 2.4 mmol/L (0.7-2.1)
[2025-03-20 15:14] LABS: INR 1.3 (0.9-1.3)
[2025-03-20 15:17] LABS: PTT Partial Thromboplastin Tim 24 SECONDS (25.1-36.5)
[2025-03-20 15:23] LABS: Troponin I < 0.012 ng/mL (0.01-0.034)
[2025-03-20] MEDS: ONDANSETRON 4 MG/2 ML INJ IV (15:36)
[2025-03-20 16:30] LABS: Reflexed Lactate in 2 Hours Y
--- NOTE | 2025-03-20 16:41 | PM.HP.IH.1 ---
History of Present Illness History of Present Illness Date Patient Seen: 03/20/25 Chief complaint: syncope [facility] Medical History History of atrial fibrillation Hypertension Surgical History H/O cardiac radiofrequency ablation Family History Father Atrial fibrillation Social History household members: spouse Smoking Status: Unknown if ever smoked Meds Home Medications and Allergies Home Medications Medication Instructions Recorded Confirmed Type amlodipine 5 mg tablet 5 mg PO BID 05/25/22 05/25/22 History pantoprazole 40 mg tablet,delayed 40 mg PO BID #60 tabs 05/27/22 Rx release (Protonix) Allergies Allergy/AdvReac Type Severity Reaction Status Date / Time warfarin Allergy Intermediate Rash Verified 03/20/25 14:44 Review of Systems Review of Systems ROS: Yes All systems reviewed with the patient and are negative except as otherwise documented Exam Vital Signs (past 8 hours): - 03/20/25 14:36 03/20/25 14:41 03/20/25 15:00 Temperature 98.1 F Pulse Rate 81 84 81 Respiratory Rate 13 21 16 Blood Pressure 123/61 Pulse Oximetry 98 98 99 Oxygen Delivery Method Room Air 03/20/25 15:00 03/20/25 15:14 03/20/25 15:14 Temperature Pulse Rate 86 Respiratory Rate 20 Blood Pressure 137/59 L 132/63 Pulse Oximetry 98 Oxygen Delivery Method Oxygen Delivery Method Room Air Objective ECG Impression: Atrial fibrillation with premature ventricular or aberrantly conducted complexes at 84bpm Imaging Abdomen-pelvis CTA 03/20/2025:: Radiologist's impression: Heterogeneous masslike appearance in the gastric lumen. While this could be a large consolidated mass of ingested food, given history of melena, malignancy or other etiology cannot be excluded. Further evaluation with endoscopy is recommended. Labs 03/20/25 14:39 03/20/25 14:39 Labs: Laboratory Results - last 24 hr 03/20/25 14:39 WBC 12.7 H RBC 2.66 L Hgb 8.0 L Hct 23.9 L MCV 90.0 MCH 29.9 MCHC 33.3 RDW 13.5 Plt Count 296 Neut % (Auto) 51.4 Lymph % (Auto) 38.7 [place] % (Auto) 8.7 Eos % (Auto) 0.6 L Baso % (Auto) 0.6 Neut # (Auto) 6500 Lymph # (Auto) 4900 H [place] # (Auto) 1100 H Eos # (Auto) 100 Baso # (Auto) 100 PT 15.0 H INR 1.3 APTT 24 L Sodium 133 L Potassium 3.7 Chloride 103 Carbon Dioxide 22 BUN 26 H Creatinine 0.64 L Estimated GFR > 60 BUN/Creatinine Ratio 40.6 H Glucose 173 H Lactate 2.4 H Calcium 8.1 L Total Bilirubin 0.4 AST 28 ALT 20 Alkaline Phosphatase 41 Total Creatine Kinase 109 Troponin I < 0.012 Total Protein 5.6 L Albumin 3.3 L Globulin 2.3 Albumin/Globulin Ratio 1.4 Blood Type A Positive Antibody Screen Negative Assessment & Plan Time-Based Coding :: [TOTAL MINUTES] spent with patient and on the chart (including review of chart, obtaining history, exam, reviewing outside data, placing orders, documenting exam and treatment plan, and counseling patient) on [DATE].
[2025-03-20 17:04] LABS: Hematocrit 22.3 % (41-53); Hemoglobin 7.5 g/dL (13.5-17.5)
[2025-03-20 17:28] LABS: Lactate 2HR (Lactic Acid Rflx) 1.4 mmol/L (0.7-2.1)
[2025-03-20 19:56] LABS: Hematocrit 21.7 % (41-53); Hemoglobin 7.3 g/dL (13.5-17.5)
--- NOTE | 2025-03-20 21:10 | PC.NURSE ---
Pt has used the bedpan x2, having black stools. Denies any pain. VVS.
== END 2025-03-20 22:03 | disposition short-term general hospital (02) ==
PROVIDERS: Emergency Provider Emergency Medicine; PCP Family Medicine Sports Medicine; Referring Provider Emergency Medicine
DX: K92.2 Gastrointestinal hemorrhage, unspecified (principal); D64.9 Anemia, unspecified; R55 Syncope and collapse; I49.3 Ventricular premature depolarization; Z86.79 Personal history of other diseases of the circulatory system
CPT/HCPCS: 36415; 74174; 80053; 81003; 82272; 82550; 83605; 84484; 85014; 85018; 85025; 85610; 85730; 86850; 86900; 86901; 93005; 93010; 96374; 96375; 99284; J2405; J2470; Q9967

== ENCOUNTER 2025-05-04 11:26 | Emergency (ER) | payer MEDICARE, SELFPAY ==
[2022-05-25 15:21] VITALS: BMI 30.8
[2025-05-04] VITALS (22 sets, daily range): BP systolic 128–181; BP diastolic 69–84; PULSE 74–88; RESP 14–24; TEMP 36.5; O2SAT 95–99; BMI 33.0
[2025-05-04 12:30] LABS: Add Manual Diff / Slide Review NO; Basophils Absolute Auto 100 /uL (0-100); Basophils Percent Auto 0.5 % (0-2); Eosinophils Absolute Auto 100 /uL (0-450); Eosinophils Percent Auto 0.8 % (2-4); Hematocrit 39.7 % (41-53); Hemoglobin 13.1 g/dL (13.5-17.5); Lymphocytes Absolute Auto 1800 /uL (1100-4500); Mean Corpuscular HGB Conc 32.9 % (30-36); Mean Corpuscular Hemoglobin 28.5 PG (26-34); Mean Corpuscular Volume 86.7 fL (80-100); Monocytes Absolute Auto 500 /uL (0-900); Monocytes Percent Auto 4.3 % (3-14); Neutrophils Absolute Auto 8300 /uL (1500-7000); Neutrophils Percent Auto 77.4 % (50-75); Platelet Count 287 X10^3/uL (150-400); Red Blood Cell Count 4.59 X10^6/uL (4.5-5.9); Red Cell Distribution Width 13.9 % (11.6-14.8); White Blood Cell Count 10.7 X10^3/uL (4.5-11.0)
[2025-05-04 12:33] LABS: Prothrombin Time 11.7 SECONDS (9.4-12.5)
[2025-05-04 12:36] LABS: PTT Partial Thromboplastin Tim 25 SECONDS (25.1-36.5)
[2025-05-04 12:37] LABS: Alanine Aminotransferase 18 IU/L (<50); Albumin 4.3 g/dL (3.5-5.0); Albumin Globulin Ratio 1.3 (1.0-2.8); Alkaline Phosphatase 63 U/L (38-126); Aspartate Aminotransferase 34 IU/L (17-59); BUN Creatinine Ratio 14.9 (6-22); Bilirubin Total 0.6 mg/dL (0.2-1.3); Blood Urea Nitrogen 13 mg/dL (9-20); Calcium 8.7 mg/dL (8.4-10.2); Carbon Dioxide 22 mmol/L (22-32); Chloride 105 mmol/L (98-107); Estimated Glomerular Filt Rate > 60 mL/min (>60); Globulin 3.2 g/dL (1.7-4.1); Glucose 140 mg/dL (70-99); HEMOLYSIS < 15 (0-50); Sodium 136 mmol/L (137-145); Total Protein 7.5 g/dL (6.3-8.2)
--- NOTE | 2025-05-04 13:17 | EKG_ITS ---
[place] [id number] [place] [id number] Test Date: 2025-05-04 [facility] Room: Gender: Male Cardiac Cath Lab Radiology Technologist: SAWYER : 1950 Requested By: Order Number: [id number] Reading MD: Kemal Walker MD Measurements Intervals [place] Rate: 78 P: -20 RI: 144 QRS: 72 QRSD: 80 T: 45 QT: 370 QTc: 421 Interpretive Statements Normal sinus rhythm Nonspecific T wave abnormality Electronically Signed On 05-04-2025 17:47:01 PDT by Kemal Walker MD
[2025-05-04 13:24] LABS: Creatine Kinase 56 U/L (55-170)
[2025-05-04 13:36] LABS: Troponin I < 0.012 ng/mL (0.01-0.034)
--- NOTE | 2025-05-04 14:34 | PC.NURSE ---
Patient reports taking turmeric that he got from a friend in [place]. 20 minutes later patient began to have a red rash on his upper chest, sweating and dizziness. Pt no longer has rash or is sweating, but still reports intermittent dizziness. States it is feeling better since earlier and not as bad but still present. Did take this turmeric before, but it has been several weeks. Provider Mank to be made aware.
[2025-05-04 15:24] LABS: UR Morphine/Opiate cutoff 300 Negative (Negative); Ur Creatinine Normal (Normal); Ur Specific Gravity Normal (Normal); Urine Amphetamines Negative (Negative); Urine Barbiturates Negative (Negative); Urine Benzodiazepines Negative (Negative); Urine Cocaine Negative (Negative); Urine MDMA Negative (Negative); Urine Methadone Negative (Negative); Urine Methamphetamines Negative (Negative); Urine Oxycodone Negative (Negative); Urine Phencyclidine Negative (Negative); Urine Tetrahydrocannabinol Negative (Negative); Urine Tricyclic Antidepressant Negative (Negative); Urine pH Normal (Normal)
--- NOTE | 2025-05-04 18:51 | PC.NURSE ---
Patient requests to get up and walk. This RN with patient. He ambulates 3 times around the department without difficulty. Steady on feet.
--- NOTE | 2025-05-04 19:17 | ED.DIZZY ---
HPI - Dizziness General Chief Complaint: Dizziness Stated Complaint: Dizzy Time Seen by Provider: 05/04/25 14:55 Source: patient Mode of arrival: EMS History of Present Illness HPI Narrative: 75-year-old male reports history of gastrointestinal bleeding from gastric ulcer, diagnosis about 6 weeks ago, transferred to [facility], had upper endoscopy and likely cautery procedure, no subsequent black stools. Today 10 30 had acute onset of dizziness, non vertiginous spinning in nature, about 25 minutes after taking oral tumeric dose. He had a skin burning sensation diffuse, no actual visible rash, felt warm, with associated dizziness. No syncope or presyncopal symptoms. No shortness of breath or chest pain. He did not have tongue or lip swelling symptoms. Symptoms seemed to resolve without specific treatment. However he had called 911, arrived by EMS, no specific treatment during transport. Symptoms resolved. He has taken oral tumeric in the past without similar symptoms. No prior stroke or TIA symptoms. Related Data Home Medications ?Medication ?Instructions ?Recorded ?Confirmed amlodipine 5 mg tablet 5 mg PO BID 05/25/22 05/25/22 Previous Rx's ?Medication ?Instructions ?Recorded pantoprazole 40 mg tablet,delayed 40 mg PO BID #60 tabs 05/27/22 release (Protonix) Allergies Allergy/AdvReac Type Severity Reaction Status Date / Time warfarin Allergy Intermediate Rash Verified 03/20/25 14:44 Patient History Medical History History of atrial fibrillation Hypertension Surgical History H/O cardiac radiofrequency ablation Family History Father Atrial fibrillation Social History household members: spouse Smoking Status: Never smoker Smoking Status: Never smoker alcohol intake frequency: holidays/special occasions only Exam Narrative Exam Narrative: GENERAL: Well-developed patient, in mild distress. HEAD: Atraumatic. Normocephalic. EYES: Pupils equal round and reactive. Extraocular motions intact. No scleral icterus. No injection or drainage. ENT: Nose without bleeding, purulent drainage. Throat without erythema, tonsillar hypertrophy or exudate. Airway patent. NECK: Trachea midline. Non tender CARDIOVASCULAR: Regular rate and rhythm without murmurs, gallops, or rubs. RESPIRATORY: Clear to auscultation. Breath sounds equal bilaterally. No wheezes, rales, or rhonchi. GASTROINTESTINAL: Abdomen soft, non-tender, nondistended. EXTREMITIES: No edema or joint tenderness. BACK: Nontender without deformity or crepitance. No flank tenderness. NEURO: AOx3. Cranial nerves normal as tested. Motor 5/5 bilateral upper extremities, 5/5 bilateral lower extremity. [id number] and left side normal. Sensation intact to light touch face arm or leg both sides symmetrical. SKIN: No rash or erythema of visible areas Initial Vital Signs Initial Vital Signs: Vital Signs Pulse Rate 84 05/04/25 11:36 Respiratory Rate 16 05/04/25 11:36 Blood Pressure 141/69 H 05/04/25 11:36 Pulse Oximetry 98 05/04/25 11:36 Oxygen Delivery Method Room Air 05/04/25 11:36 Course Orders Ordered: Discontinued Medications Ondansetron HCl (Ondansetron 4 Mg/2 Ml Inj) 4 mg IV NOW PRN PRN Reason: Nausea And Vomiting Ondansetron HCl (Ondansetron 4 Mg Odt) 4 mg PO NOW PRN PRN Reason: Nausea And Vomiting Vital Signs Vital signs: Vital Signs - 8 hr 05/04/25 19:30 05/04/25 19:30 Pulse Rate 78 Respiratory Rate 19 Blood Pressure 169/81 H Pulse Oximetry 99 Oxygen Delivery Method Room Air MDM - Dizziness Lab Data Attestation: I reviewed the patient's lab results. Lab results narrative: White blood cell count 68420, hemoglobin 13.1, platelets adequate. Glucose 140. Normal renal function. Normal potassium, sodium 136 slight low, serum CO2 normal 22. Liver functions normal. Troponin negative/unmeasurable. UDS negative. Urine dip negative. 05/04/25 12:12 05/04/25 12:12 Labs: Lab Results 05/04/25 05/04/25 05/04/25 Range/Units 12:12 14:25 19:45 WBC 10.7 (4.5-11.0) X10^3/uL RBC 4.59 (4.5-5.9) X10^6/uL Hgb 13.1 L (13.5-17.5) g/dL Hct 39.7 L (41-53) % MCV 86.7 (80-100) fL MCH 28.5 (26-34) PG MCHC 32.9 (30-36) % RDW 13.9 (11.6-14.8) % Plt Count 287 (150-400) X10^3/uL Neut % (Auto) 77.4 H (50-75) % Lymph % (Auto) 17.0 L (25-40) % [place] % (Auto) 4.3 (3-14) % Eos % (Auto) 0.8 L (2-4) % Baso % (Auto) 0.5 (0-2) % Neut # (Auto) 8300 H (1502-1407) /uL Lymph # (Auto) 1800 (6435-0235) /uL [place] # (Auto) 500 (0-900) /uL Eos # (Auto) 100 (0-450) /uL Baso # (Auto) 100 (0-100) /uL PT 11.7 (9.4-12.5) SECONDS INR 1.0 (0.9-1.3) APTT 25 L (25.1-36.5) SECONDS Sodium 136 L (137-145) mmol/L Potassium 4.0 (3.4-5.1) mmol/L Chloride 105 (98-107) mmol/L Carbon Dioxide 22 (22-32) mmol/L BUN 13 (9-20) mg/dL Creatinine 0.87 (0.66-1.25) mg/dL Estimated GFR > 60 (>60) mL/min BUN/Creatinine Ratio 14.9 (6-22) Glucose 140 H (70-99) mg/dL Calcium 8.7 (8.4-10.2) mg/dL Total Bilirubin 0.6 (0.2-1.3) mg/dL AST 34 (17-59) IU/L ALT 18 (<50) IU/L Alkaline Phosphatase 63 (38-126) U/L Total Creatine Kinase 56 (55-170) U/L Troponin I < 0.012 Cancelled (0.01-0.034) ng/mL Total Protein 7.5 (6.3-8.2) g/dL Albumin 4.3 (3.5-5.0) g/dL Globulin 3.2 (1.7-4.1) g/dL Albumin/Globulin Ratio 1.3 (1.0-2.8) U Opiates 300ng/mL cut Negative (Negative) Ur Oxycodone Screen Negative (Negative) Urine Methadone Screen Negative (Negative) Ur Barbiturates Screen Negative (Negative) U Tricyclic Antidepress Negative (Negative) Ur Phencyclidine Scrn Negative (Negative) Ur Amphetamines Screen Negative (Negative) U Methamphetamines Scrn Negative (Negative) Ur MDMA Scrn (Ecstasy) Negative (Negative) U Benzodiazepines Scrn Negative (Negative) Urine Cocaine Screen Negative (Negative) U Marijuana (THC) Screen Negative (Negative) Urine pH Normal (Normal) Urine Specific [place] Normal (Normal) Ur Creatinine Normal (Normal) Blood Type A Positive Antibody Screen Negative Urine Dip Bedside Urine Glucose Negative Bedside Urine Bilirubin - Negative Bedside Urine Ketone - Negative Urine Specific [place] 1.010 Bedside Urine Occult Blood - Negative Bedside Urine pH 6.0 Bedside Urine Protein +/- 15 Bedside Urine Urobilinogen - Negative Bedside Urine Nitrite - Negative Bedside Urine Leukocytes - Negative Esterase ECG Data Attestation: I personally reviewed and interpreted this ECG as follows: Interpretation: 1317, normal sinus rhythm with rate of 78, no obvious ST segment elevation or depression changes. TX 144, QRS 80, QTC 421. MDM Narrative Medical decision making narrative: 75yo male with dizziness onset after turmeric with diffuse skin burning sensation, called EMS, no treatment during transport, symptoms lasted for 2 hours and resolved without specific treatment. No longer having any dizziness. Non vertiginous in nature. Afebrile, sirs screen negative. Nonfocal neuro exam. Lab studies: White blood cell count 17854, hemoglobin 13.1, platelets adequate. Glucose 140. Normal renal function. Normal potassium, sodium 136 slight low, serum CO2 normal 22. Liver functions normal. Troponin negative/unmeasurable. UDS negative. Urine dip negative. Screening labs unremarkable. Offered CT head and CT angiogram head and neck vessels studies, he declines this. He does not want to have repeat interval troponin. He would like to go home. Discharged home per patient request. Advised for now to avoid turmeric. Discharge Plan Departure Patient Disposition: Home Clinical Impression: Dizziness Activity Restrictions/Additional Instructions: Resolved dizziness and diffuse skin burning sensation, possibly related to tumeric about 25 minutes prior to onset of symptoms. No history of prior problems with oral turmeric. Symptoms resolved after about 2 hours after onset without specific treatment. No treatment given by EMS. No specific treatment here in the emergency department. Initial screening labs unremarkable. Initial EKG unremarkable. We did discuss CT scanning of the head, CT angiogram of the head and neck vessels. These studies were declined. You felt better and wanted to go home. Discharged home per patient request. Further workup as an outpatient for now. Prescriptions: No Action amlodipine 5 mg tablet 5 mg PO BID pantoprazole [Protonix] 40 mg tablet,delayed release (DR/EC) 40 mg PO BID Qty: 60 3RF Referrals: Jovany Richardson MD [Primary Care Provider, Family Practice] Stand Alone Forms: Patient Portal/API
== END 2025-05-04 20:02 | disposition home or self-care (01) ==
PROVIDERS: Emergency Medicine; Emergency Provider Emergency Medicine; PCP Family Medicine Sports Medicine
DX: R42 Dizziness and giddiness (principal); R20.8 Other disturbances of skin sensation; Z87.11 Personal history of peptic ulcer disease
CPT/HCPCS: 80053; 80305; 81003; 82550; 84484; 85025; 85610; 85730; 86850; 86900; 86901; 93005; 93010; 99283; 99284